=== PATIENT | female | born 2000 | race Hispanic/Latino ===

== ENCOUNTER 2020-07-15 05:30 | Inpatient (IN) | payer MEDICAID, OTHER ==
--- OUTSIDE RECORDS SUMMARY | 2020-07-15 05:32 | XMS REPORT | Continuity of Care Document ---
:2000 Author Organization [facility] t Address [address] [place] [address] Care Team Providers Name Role Phone Boone Claire MD Attending Clinician La Martinez Attending Clinician Boone Claire MD Admitting Clinician Problems This patient has no known problems. Allergies, Adverse Reactions, Alerts This patient has no known allergies or adverse reactions. Medications This patient has no known medications. Procedures This patient has no known procedures. Encounters Start End Encounter Admission Attending Care Care Encounter Source Date/Time Date/Time Type Type Clinicians Facility Department ID 2020-07-13 2020-07-13 [facility] DakotahRONNI [id number] 10:57:00 13:28:00 Encounter Shakeel HENDERSON [id number] ANNEX [id number] 2020-07-02 2020-07-02 Routine IRENA Sanches [id number] 14:34:51 15:21:54 Roshunda R VIDEO RECORDER MECHANIC [id number] Visit REGIONAL [id number] MATERNAL [id number] & CHILD [address] [place] [address] Results This patient has no known results.
--- OUTSIDE RECORDS SUMMARY | 2020-07-15 05:32 | XMS REPORT | Summary of Care ---
:2000 Author Organization [facility] - [facility] Address [address] [place] [address] Care Team Providers Name Role Phone Pcp, Does Not Have A Primary Care Provider Encounter Details Date Type Department Care Team Description 05/10/2020 Orders Only [facility] Doctor Unassigned, No [address] [facility] [place] [address] [address] [place] [address] Allergies No Known Allergiesdocumented as of this encounter (statuses as of 05/10/2020) Medications Medication Sig Dispensed Refills Start Date End Date Status ferrous sulfate 325 mg Take 1 tablet 60 tablet 11 01/24/2019 Active (65 mg iron) by mouth 2 tabletIndications: (two) times Anemia of mother in daily. , antepartum vit Take by mouth. 0 A ctive calc,iron,folic ( VITAMIN ORAL) ferrous sulfate (IRON, Take 1 tablet 60 tablet 11 02/22/2019 Active FERROUS SULFATE,) 325 mg by mouth 2 (65 mg iron) (two) times tabletIndications: daily. Anemia of mother in , antepartum vitamin w/FA Take 1 tablet 100 tablet 3 07/11/2019 Active tabletIndications: by mouth daily. Anemia of mother in , antepartum, Maternal varicella, non-immune, GBS (group B Streptococcus carrier), +RV culture, currently , Chlamydia trachomatis infection of lower genitourinary sites, Encounter for induction of labor, Oligohydramnios in third trimester, single or unspecified fetus, 41 weeks gestation of , Insufficient care in third trimester, Liveborn infant, of vo , born in hospital by vaginal delivery docusate calcium 240 mg Take 1 capsule 30 capsule 1 07/11/2019 Active capsuleIndications: by mouth once Anemia of mother in daily as needed , antepartum, for Maternal varicella, Constipation. non-immune, GBS (group B Streptococcus carrier), +RV culture, currently , Chlamydia trachomatis infection of lower genitourinary sites, Encounter for induction of labor, Oligohydramnios in third trimester, single or unspecified fetus, 41 weeks gestation of , Insufficient care in third trimester, Liveborn infant, of vo , born in hospital by vaginal delivery ferrous sulfate 325 mg Take 1 tablet 60 tablet 2 07/11/2019 Active (65 mg iron) by mouth 2 tabletIndications: (two) times Anemia of mother in daily. , antepartum, Maternal varicella, non-immune, GBS (group B Streptococcus carrier), +RV culture, currently , Chlamydia trachomatis infection of lower genitourinary sites, Encounter for induction of labor, Oligohydramnios in third trimester, single or unspecified fetus, 41 weeks gestation of , Insufficient care in third trimester, Liveborn infant, of vo , born in hospital by vaginal delivery ibuprofen 600 mg Take 1 tablet 30 tablet 1 07/11/2019 Active tabletIndications: by mouth every Anemia of mother in 6 (six) hours , antepartum, as needed for Maternal varicella, Pain (scale non-immune, GBS (group B 1-3) or Pain Streptococcus carrier), (scale 4-6) +RV culture, currently (Pain). Take , Chlamydia with food or trachomatis infection of milk. lower genitourinary sites, Encounter for induction of labor, Oligohydramnios in third trimester, single or unspecified fetus, 41 weeks gestation of , Insufficient care in third trimester, Liveborn infant, of vo , born in hospital by vaginal delivery documented as of this encounter (statuses as of 05/10/2020) Active Problems Problem Noted Date Oligohydramnios in third trimester 07/09/2019 41 weeks gestation of 07/09/2019 Insufficient care in third trimester 07/09/20 19 Liveborn , of vo , [facility] [place] [facility] by vaginal 07/09/2019 delivery Encounter for induction of labor 07/08/2019 Chlamydia trachomatis infection of lower genitourinary sites 01/27/2019 Overview: 5/20/19 - Azithromycin prescribed. GBS (group B Streptococcus carrier), +RV culture, curr ently 01/26/2019 Overview: 01/24/19 - urine culture GBS. S/p Amoxici llin. Will need intrapartum antibiotics. Maternal drug use complicating , antepartum 0 01/25/2019 Overview: 01/24/19 - UDS positive for Marijuana 02/23/19 - UDS negative Maternal varicella, non-immune 01/25/2019 Overview: Patient will need VZV History of pre-eclampsia in prior , currently 01/24/2019 Overview: 01/24/19 - AST 15, creatinine 0.56 Anemia of mother in , antepartum 01/24/2019 Overview: 01/24/19 - Hgb 9.5/hct 30.9 Integra F sta rted. documented as of this encounter (statuses as of 05/10/2020) Resolved Problems Problem Noted Date Resolved Date Acute cystitis during , antepartum 01/26/2019 07/09/2019 Overview: 01/24/19 - urine culture GBS. S/p Amoxici llin. Will need intrapartum antibiotics. HELLP (hemolytic anemia/elev liver enzymes/low platelets in 03/21/2018 01/24/2019 ) Anemia 03/19/2018 01/24/2019 Thrombocytopenia 03/19/2018 01/24/2019 39 weeks gestation of 03/18/2018 01/25/20 Liveborn infant by vaginal delivery 03/18/201801/06 documented as of this encounter (statuses as of 05/10/2020) Social History Tobacco Use Types Packs/Day Years Used Date Never Smoker Smokeless Tobacco: Never Used Alcohol Use Drinks/Week oz/Week Comments No Sex Assigned at Date Recorded Not on file documented as of this encounter Last Filed Vital Signs Not on filedocumented in this encounter Plan of Treatment Date Type Specialty Care Team Description 05/10/2020 Initial Visit [facility] Cierra Hampton, TIME STUDY TECHNOLOGIST [address] [place], [place] [address] [phone] Health Maintenance Due Date Last Done Comments VARICELLA VACCINES (1 of 2 - 2001 2-dose childhood series) MENINGOCOCCAL B VACCINES (1 of 2 - 2010 Risk Bexsero 2-dose series) HPV VACCINES (1 - 2-dose series) 2011 Depression Screening 2012 WELL CARE VISIT: 12-21 YEARS 2012 (yearly) DTaP,Tdap,and Td Vaccines (1 - 2019 Tdap) INFLUENZA VACCINE (#1) 2020 CHLAMYDIA SCREENING 2020 2019 MENINGOCOCCAL VACCINE Aged Out No longer eligible based on patient's age to complete this topic PNEUMOCOCCAL 0-64 YEARS COMBINED Aged Out No longer eligible based on SERIES patient's age to complete this topic documented as of this encounter Procedures Procedure Name Priority Date/Time Associated Diagnosis Comme nts ASSIGNMENT OF BENEFITS Routine 05/10/2020 1:27 PM CDT documented in this encounter Results Not on filedocumented in this encounter Insurance Payer Benefit Plan / Subscriber ID Effective Phone Address T [facility] Group Dates JUAN PABLO ALMEIDA [id number] 2017-Benji GUO Medic [facility] [place] [phone] MANAGED MEDICAID [place], [place]ICA[place] documented as of this encounter
--- OUTSIDE RECORDS SUMMARY | 2020-07-15 05:33 | XMS REPORT | Summary of Care ---
:2000 Author Organization [facility] Address [address] [place] [address] Care Team Providers Name Role Phone Pcp, Does Not Have A Primary Care Provider Reason for Visit Reason Comments Care MF Visit Encounter Details Date Type Department Care Team Description [facility]/18[facility]2020 [facility] MD [address] [facility] [id number] [place] [address] Supervision of high Visit Marble FacultySergio [facility] risk , [address] [place] [address] Allergies No Known Allergiesdocumented as of this encounter (statuses as of 06/18/2020) Medications Medication Sig Dispensed Refills Start Date End Date Status PNV 67-iron ps-folate Take 1 capsule by 30 capsule 11 0 Active no.1-dha (VITAFOL mouth daily. ULTRA) 29 mg iron- 1 mg-200 mg CapIndications: Supervision of high risk , antepartum ferrous sulfate (IRON, Take 1 tablet by 90 tablet 3 06/18/2020 Active FERROUS SULFATE,) 325 mouth 3 (three) mg (65 mg iron) times daily with tabletIndications: meals. Supervision of high risk , antepartum documented as of this encounter (statuses as of 06/18/2020) Active Problems Problem Noted Date Anemia of mother in , antepartum 05/11/2020 Short interval between pregnancies affecting , antepartum 05/11/2020 Supervision of high risk , antepartum 020 Multiparity 05/11/2020 Maternal varicella, non-immune 01/25/2019 Overview: Patient will need VZV History of pre-eclampsia in prior , currently 01/24/2019 Overview: 01/24/19 - AST 15, creatinine 0.56 Estimated Date of Delivery Comments Yes 07/31/2020 Based on last menstr ual period of 10/25/2019 (Within Days) documented as of this encounter (statuses as of 06/18/2020) Resolved Problems Problem Noted Date Resolved Date Oligohydramnios in third trimester 07/09/201905/10 41 weeks gestation of 07/09/2019 05/10/20 20 Insufficient care in third trimester 07/09/2019 05/10/2020 Liveborn infant, of vo , born in hospital by 07/09/2019 05/10/2020 vaginal delivery Encounter for induction of labor 07/08/2019 020 Chlamydia trachomatis infection of lower genitourinary sites 01/27/2019 05/10/2020 Overview: 01/24/19 - Azithromycin prescribed. GBS (group B Streptococcus carrier), +RV culture, currently 01/26/2019 05/10/2020 Overview: 01/24/19 - urine culture GBS. S/p Amoxici llin. Will need intrapartum antibiotics. Acute cystitis during , antepartum 01/26/2019 07/09/2019 Overview: 01/24/19 - urine culture GBS. S/p Amoxici llin. Will need intrapartum antibiotics. Maternal drug use complicating , antepartum 019 05/10/2020 Overview: 01/24/19 - UDS positive for Marijuana 02/23/19 - UDS negative Anemia of mother in , antepartum 01/24/2019 05/10/2020 Overview: 01/24/19 - Hgb 9.5/hct 30.9 Integra F sta rted. HELLP (hemolytic anemia/elev liver enzymes/low platelets in 03/21/2018 01/24/2019 ) Anemia 03/19/2018 01/24/2019 Thrombocytopenia 03/19/2018 01/24/2019 39 weeks gestation of 03/18/2018 01/25/20 19 Liveborn infant by vaginal delivery 03/18/2018 05/ documented as of this encounter (statuses as of 06/18/2020) Immunizations Name Administration Dates Next Due TDAP 05/10/2020 documented as of this encounter Social History Tobacco Use Types Packs/Day Years Used Date Never Smoker Smokeless Tobacco: Never Used Alcohol Use Drinks/Week oz/Week Comments No Estimated Date of Delivery Comments Yes 07/31/2020 Based on last menstr ual period of 10/25/2019 (Within Days) Sex Assigned at Date Recorded Not on file COVID-19 Exposure Response Date Recorded In the last month, have you been in contact with No / Unsure 06/18/2020 3:29 PM CDT someone who was confirmed or suspected to have Coronavirus / COVID-19? documented as of this encounter Last Filed Vital Signs Vital Sign Reading Time Taken Comments Blood Pressure 118/53 06/18/2020 3:29 PM CDT Pulse 96 06/18/2020 3:29 PM CDT Temperature 36.6 C (97.8 F) 06/18/2020 3:29 PM CDT Respiratory Rate 16 06/18/2020 3:29 PM CDT Oxygen Saturation - - Inhaled Oxygen Concentration - - Weight 56.5 kg (124 lb 9 oz) 06/18/2020 3:29 PM CDT Height 157.5 cm (5' 2") 06/18/2020 3:29 PM CDT Body Mass Index 22.78 06/18/2020 3:29 PM CDT documented in this encounter Progress Notes Bronson Sorto MD - 06/18/2020 3:00 PM CDT PRISCILA DE PAZ #: [id number] Date of service: 06/18/2020 16:28 MFM Return Visit CC: Care and MFM Visit HPI: Priscila De Paz is a 19 year old, , /White female. Patient's last menstrual period was 10/25/2019 (within days). She is 33w6d with an intrauterine . Her estimated date of delivery is 07/31/2020, by Last Menstrual Period. Denies bleeding, LOF, contractions. Feeling active movement. Histories: OB History Para Term AB Living 3 2 2 2 SAB TAB Ectopic Multiple Live Births 0 2 # Outcome Date GA Lbr Donald/2nd Weight Sex Delivery Anes PTL Lv 3 Current 2 Term 07/09/19 41w1d 7 lb 3.3 oz (3.27 kg) M NORMAL SPONT EPI N DANITZA 1 Term 03/18/18 39w1d 6 lb 9 oz (2.977 kg) M VAGINAL IV narcotic, EPI DANITZA Past Medical History: Diagnosis Date Maternal drug use complicating , antepartum 01/25/2019 STD (sexually transmitted disease) Family History Problem Relation Age of Onset No Significant Medical Problems Mother No Significant Medical Problems Father Diabetes Maternal Grandfather No past surgical history on file. Social History Socioeconomic History Marital status: Single Spouse name: Not on file Number of children: Not on file Years of education: Not on file Highest education level: Not on file Occupational History Not on file Social Needs Financial resource strain: Not on file Food insecurity Worry: Not on file Inability: Not on file Transportation needs Medical: Not on file Non-medical: Not on file Tobacco Use Smoking status: Never Smoker Smokeless tobacco: Never Used Substance and Sexual Activity Alcohol use: No Drug use: No Sexual activity: Yes Partners: Male Lifestyle Physical activity Days per week: Not on file Minutes per session: Not on file Stress: Not on file Relationships Social connections Talks on phone: Not on file Gets together: Not on file Attends sikhism service: Not on file Active member of club or organization: Not on file Attends meetings of clubs or organizations: Not on file Relationship status: Not on file Intimate partner violence Fear of current or ex partner: Not on file Emotionally abused: Not on file Physically abused: Not on file Forced sexual activity: Not on file Other Topics Concern Not on file Social History Narrative Pt denies physical and sexual abuse. Patient lives with partner and children. Patient has 1 inside dog. Social History Tobacco Use Smoking Status Never Smoker Smokeless Tobacco Never Used Social History Substance and Sexual Activity Sexual Activity Yes Partners: Male Allergies No Known Allergies Medications: Outpatient Medications Marked as Taking for the 06/18/20 encounter (Routine Visit) with Faculty, Sergio Meredith Medication Sig ferrous sulfate (IRON, FERROUS SULFATE,) 325 mg (65 mg iron) tablet Take 1 tablet by mouth 3 (three) times daily with meals. Labs: No new labs Radiology: I have reviewed the patient's Radiology report(s). ROS: Review of Systems Negative ] OBJECTIVE: BP 118/53 (BP Location: Right arm, Patient Position: Sitting, BP CUFF SIZE: Adult Medium) | Pulse 96 | Temp 36.6 C (97.8 F) (Oral) | Resp 16 | Ht 5' 2" (1.575 m) | Wt 124 lb 9 oz (56.5 kg) | LMP 10/25/2019 (Within Days) | BMI 22.78 kg/m 23.04 Physical Exam: Physical Exam Vitals reviewed. Cardiovascular: Regular rate and rhythm. Pulmonary/Chest: Normal inspiratory effort. Abdominal: Abdomen is soft. Neuro/Psychiatric: She has a normal mood and affect. + FHT 140s Assessment and Plan: Priscila De Paz is a 19 year old female at 33w6d with intrauterine Anemia in - Microcytic - + hx in previous pregnancies - never evaluated before - negative FH for thalassemia - will send iron studies and start patient on ferrous sulfate TID - if confirmed iron def will send to L and D for IV iron - if not will do electrophoresis Bronson Sorto MD 06/18/2020 4:31 PM documented in this encounter Plan of Treatment Date Type Specialty Care Team Description 06/20/2020 Junior Programmer Analyst Visit [facility] 06/20/2020 Junior Programmer Analyst Visit Maternal Medicine 06/25/2020 Routine Visit [facility] Stiven Sanches, DRIED YEAST SUPERVISOR [address] [id number] [phone] Name Type Priority Associated Diagnoses Order S chedule IRON LAB Routine Supervision of high risk Exp ected: 06/18/2020, , antepartum s: 06/18/2021 FERRITIN SERUM LAB Routine Supervision of high risk E xpected: 06/18/2020, , antepartum s: 06/18/2021 TOTAL IRON BINDING LAB Routine Supervision of high ri sk Expected: 06/18/2020, CAPACITY , antepartum s: 06/18/2021 Health Maintenance Due Date Last Done Comments INFLUENZA VACCINE (#1) 2020 HPV VACCINES (1 - 2-dose 05/01/2021 Postpon ed from series) 2011 (Preg nant or ) CHLAMYDIA SCREENING 05/10/2021 05/10/2020, 2019 Depression Screening 05/10/2021 05/10/2020 MENINGOCOCCAL B VACCINES (1 05/10/2021 Post poned from of 2 - Risk Bexsero 2-dose 07/07 ( or series) ) VARICELLA VACCINES (1 of 2 - 05/10/2021 Pos tponed from 2-dose childhood series) 001 ( or ) DTaP,Tdap,and Td Vaccines (2 05/10/2030 05/10/2020 - Td) MENINGOCOCCAL VACCINE Aged Out No longer eligible based on patient's age to complete this to pic PNEUMOCOCCAL 0-64 YEARS Aged Out No longe r eligible based COMBINED SERIES on patient's age to complete this to [facility] WELL CARE VISIT: 12-21 YEARS Discontinued (yearly) documented as of this encounter Procedures Procedure Name Priority Date/Time Associated Diagnosis Comme nts POCT URINALYSIS W/O Routine 06/18/2020 3:34 Supervision of [facility] Results for this SPECIFIC GRAVITY PM CDT risk , procedur e are in antepartum the results section. documented in this encounter Results POCT URINALYSIS W/O SPECIFIC GRAVITY (06/18/2020 3:34 PM CDT) Pathologist Sig nature POCT PH U 6 5 - 8 mg/dl POCT U LEUK EST 1+ Negative - Negative POCT U NIT negative Negative - Negative POCT U PROT trace Negative - Negative POCT U GLU negative Negative - Negative POCT U KETONE negative Negative - Negative POCT U BLD negative Negative - Negative Specimen Urine - URINE, CLEAN CATCH documented in this encounter Visit Diagnoses Diagnosis Supervision of high risk , ante - Primary documented in this encounter Insurance Payer Benefit Plan / Subscriber ID Effective Phone Address T ype Group Dates JUAN PABLO ALMEIDA [id number] 2020-Pres [address] Medic aid [facility] - [place] [id number] MANAGED MEDICAID [place], MEDICAID [place] [address] documented as of this encounter
--- OUTSIDE RECORDS SUMMARY | 2020-07-15 05:33 | XMS REPORT | Summary of Care ---
:2000 Author Organization [facility] [email or web address] Address [address] [place] [address] Care Team Providers Name Role Phone Pcp, Does Not Have A Primary Care Provider Reason for Visit Reason Comments New OB Visit Encounter Details Date Type Department Care Team Description 05/10/2020 Initial [facility]- Cierra Hampton pervision of high risk , antepartum (Primary Dx); Visit Su N, RECLAIMER Multiparity; [address] History of pre-eclampsia in prior pregna ncy, currently ; [address] Short interval between pregnancies affec ting , antepartum; [place], [place] Screening for v iral disease [id number] [phone] Allergies No Known Allergiesdocumented as of this encounter (statuses as of 05/10/2020) Medications Medication Sig Dispensed Refills Start Date End Date Status vit Take by 0 Active calc,iron,folic mouth. ( VITAMIN ORAL) ferrous sulfate 325 Take 1 tablet 60 tablet 01/24/201905/10 Discontinued mg (65 mg iron) by mouth 2 0 tabletIndications: (two) times Anemia of mother in daily. , antepartum ferrous sulfate Take 1 tablet 60 tablet 02/22/2019 Discontinued (IRON, FERROUS by mouth 2 0 SULFATE,) 325 mg (65 (two) times mg iron) daily. tabletIndications: Anemia of mother in , antepartum vitamin w/FA Take 1 tablet 100 tablet 3 07/11/2019 Discontinued tabletIndications: by mouth 0 Anemia of mother in daily. , antepartum, Maternal varicella, non-immune, GBS (group B Streptococcus carrier), +RV culture, currently , Chlamydia trachomatis infection of lower genitourinary sites, Encounter for induction of labor, Oligohydramnios in third trimester, single or unspecified fetus, 41 weeks gestation of , Insufficient care in third trimester, Liveborn , of vo , born in hospital by vaginal delivery docusate calcium 240 Take 1 30 capsule 1 07/11/2019 02 Discontinued mg capsule by 0 capsuleIndications: mouth once Anemia of mother in daily as , needed for antepartum, Maternal Constipation. varicella, non-immune, GBS (group B Streptococcus carrier), +RV culture, currently , Chlamydia trachomatis infection of lower genitourinary sites, Encounter for induction of labor, Oligohydramnios in third trimester, single or unspecified fetus, 41 weeks gestation of , Insufficient care in third trimester, Liveborn infant, of vo , born in hospital by vaginal delivery ferrous sulfate 325 Take 1 tablet 60 tablet 2 07/11/201905/10 Discontinued mg (65 mg iron) by mouth 2 0 tabletIndications: (two) times Anemia of mother in daily. , antepartum, Maternal varicella, non-immune, GBS (group B Streptococcus carrier), +RV culture, currently , Chlamydia trachomatis infection of lower genitourinary sites, Encounter for induction of labor, Oligohydramnios in third trimester, single or unspecified fetus, 41 weeks gestation of , Insufficient care in third trimester, Liveborn , of vo , born in hospital by vaginal delivery ibuprofen 600 mg Take 1 tablet 30 tablet 1 07/11/2019 05/10/20 2 Discontinued tabletIndications: by mouth 0 Anemia of mother in every 6 (six) , hours as antepartum, Maternal needed for varicella, Pain (scale non-immune, GBS 1-3) or Pain (group B (scale 4-6) Streptococcus (Pain). Take carrier), +RV with food or culture, currently milk. , Chlamydia trachomatis infection of lower genitourinary sites, Encounter for induction of labor, Oligohydramnios in third trimester, single or unspecified fetus, 41 weeks gestation of , Insufficient care in third trimester, Liveborn infant, of ov , born in hospital by vaginal delivery documented as of this encounter (statuses as of 05/10/2020) Active Problems Problem Noted Date Maternal varicella, non-immune 01/25/2019 Overview: Patient will [...] care in third trimester 07/09/2019 05/10/2020 Liveborn , of vo , born in hospital by [...] weeks gestation of 03/18/2018 01/25/20 19 Liveborn by vaginal delivery 03/18/2018 05/ documented as of this encounter (statuses as of 05/10/2020) Immunizations Name Administration Dates Next Due TDAP [...] been in contact with No / Unsure 05/10/2020 2:12 PM CDT someone who was confirmed or suspected to have Coronavirus / COVID-19? documented as of this encounter Last Filed Vital Signs Vital Sign Reading Time Taken Comments Blood Pressure 113/73 05/10/2020 2:12 PM CDT Pulse 88 05/10/2020 2:12 PM CDT Temperature 36.3 C (97.3 F) 05/10/2020 2:12 PM CDT Respiratory Rate 16 05/10/2020 2:12 PM CDT Oxygen Saturation - - Inhaled Oxygen Concentration - - Weight 57.2 kg (126 lb) 05/10/2020 2:12 PM CDT Height 157.5 cm (5' 2") 05/10/2020 2:12 PM CDT Body Mass Index 23.05 05/10/2020 2:12 PM CDT documented in this encounter Progress Notes Cierra Hampton, RECLAIMER - 05/10/2020 1:45 PM CDT Chief complaint: Chief Complaint Patient presents with New OB Visit CC: Initial Visit Gabriela De Paz is a 19 year old, , /White female. Patient's last menstrual period was 10/25/2019 (within days). She is 28w2d with an intrauterine . Her Estimated Date of Delivery: 07/31/20. She is being seen today for her first obstetrical visit. She has no complaints today. Patient denies recent foreign travel. Denies current physical, emotional or sexual abuse. She is taking PNV. She denies any ctx/cramping, VB, LOF, CALDWELL, visual disturbance, vaginal discharge or dysuria. She denies any foreign travel. She also denies any physical, sexual or emotional abuse. OB History T2 L2 SAB0 TAB0 Ectopic0 Multiple0 Live Births2 Name of Baby 1: OSMEL DE PAZ BOY Date: 03/18/18 GA: 39w1d Delivery: Vaginal Apgar1: 8 Apgar5: 9 Living: Living Name of Baby 2: ABEL DE PAZ GABRIELA Date: 07/09/19 GA: 41w1d Delivery: Normal Spontaneous Vaginal Apgar1: 8 Apgar5: 9 Living: Living Name of Baby 3: Not recorded Date: Not recorded GA: Not recorded Delivery: Not recorded Apgar1: Not recorded Apgar5: Not recorded Living: Not recorded Histories OB History Para Term AB Living 3 [...] Significant Medical Problems Father Diabetes Maternal Grandfather Family Status Relation Name Status Mo Alive Fa Alive MGFa Alive History reviewed. No pertinent surgical history. Social History Socioeconomic History Marital status: Single [...] file Gets together: Not on file Attends congregation service: Not on file Active member of [...] Patient has 1 inside dog. Social History Substance and Sexual Activity Sexual Activity Yes Partners: Male Genetic Screen Autism / Mental Retardation: No Franchesca Disease: No Congenital Heart Defect: No Cystic Fibrosis: No Down Syndrome: No Familial Dysautonomia: No Hemophilia or other Blood Disorders: No Ledy Chorea: No Maternal Metabolic Disorder--specify (eg. Type 1 Diabetes, PKU): No Muscular Dystrophy: No Neural Tube Defect: No Recurrent Loss or a Stillbirth: No Sickle Cell Disease or Trait: No Chacho Sachs: No Teratological Substances (specify type & strength/dose) since LMP: No Thalassemia: No Other Inherited Genetic or Chromosomal Disorder (specify): No No Significant History of Genetic Disorders: No Significant History of Genetic Disorders Labs Labs are pending. Radiology Radiology pending. Allergies Gabriela has No Known Allergies. Medications Gabriela has a current medication list which includes the following prescription(s): vit calc,iron,folic. Review of Systems Constitutional: Negative. Negative for appetite change, fatigue and fever. HENT: Negative. Eyes: Negative. Negative for visual disturbance. Respiratory: Negative. Breasts: Negative. Cardiovascular: Negative. Negative for palpitations and leg swelling. Gastrointestinal: Negative. Negative for abdominal pain, constipation, diarrhea, nausea and vomiting. Genitourinary: Negative. Negative for dysuria, vaginal bleeding, vaginal discharge and pelvic pain. Musculoskeletal: Negative. Skin: Negative. Negative for rash. Neurological: Negative. Negative for dizziness, light-headedness and headaches. Psychiatric/Behavioral: Negative. Endocrine: Endocrine negative BP 113/73 (BP Location: Right arm, Patient Position: Sitting, BP CUFF SIZE: Adult Medium) | Pulse 88 | Temp 36.3 C (97.3 F) (Oral) | Resp 16 | Ht 5' 2" (1.575 m) | Wt 126 lb (57.2 kg) | LMP 10/25/2019 (Within Days) | No | BMI 23.05 kg/m Pregravid BMI: 23.04 Physical Exam Vitals reviewed. Constitutional: She is oriented to person, place, and time. She appears well- developed and well-nourished. Her body habitus is normal. See flowsheet Neck: No thyroid nodules and no thyromegaly palpated. Cardiovascular: Regular rate and rhythm. No murmur auscultated. No peripheral edema present. Pulmonary/Chest: Breath sounds clear to auscultation. Normal inspiratory effort. Abdominal: Abdomen is soft. No mass palpated. No tenderness present. There is no hepatosplenomegaly. Neuro/Psychiatric: She has a normal mood and affect. She is oriented to person, place, and time. Skin: Skin normal. No lesion and no rash present. Genitourinary Comments: Chaperoned by: Aleksandra Emanuel MA Breast: Right breast exhibits no mass, no nipple discharge and no tenderness. Left breast exhibits no mass, no nipple discharge and no tenderness. Normal left breast and normal right breast External genitalia: Normal external genitalia appropriate for age. No labial lesion. Bladder: No tenderness. Normal bladder Vagina:Normal vagina. No lesion inspected. No abnormal vaginal discharge found. No lesions in thevagina. Cervix: Normal cervix. No lesion. No tenderness and no discharge present. Uterus: Uterus is enlarged. Uterus is normal position and non-tender. gravidNormal uterus Adnexa: Right adnexa without tenderness. Left adnexa without tenderness. Normal left adnexa and normal right adnexa PHYSICAL: General Exam: HEENT: Normal Thyroid: Normal Lymph Node: Normal Neurological: Normal Heart: Normal Lungs: Normal Breasts: Normal Abdomen: Normal Skin: Normal Extremities: Normal Pelvic Exam: Vulva: Normal Vagina: Normal Cervix: Normal SVE closed/thick/high Membrane status: Intact Uterus: 26 Weeks Adnexa: Normal Rectum: Normal Spines: Average Subpubic Arch: Normal Assessment/Plan 1. Supervision of high risk , antepartum 28w2d New OB packet reviewed TWG discussed Discussed recommendation for social distancing and PPE use Initiate Vitamins Increase Fluid Intake. Minimum of 8 water bottles daily. Plan anatomy scan with insurance coverage 28 week teaching and tdap today - POCT TEST - POCT URINALYSIS W/O SPECIFIC GRAVITY - CBC WITH DIFF - GC & CHLAMYDIA AMPLIFIED ASSAY - HEPATITIS B SURFACE ANTIGEN - HIV 1/2 AG-AB WITH REFLEX - WORKUP, BLOOD BANK - RUBELLA SCREEN (BIA) IGG - GALV ONLY - SYPHILIS IGG/IGM - URINE CULTURE - VZV ANTIBODY SCREEN - TDAP VACCINE, >10 YRS, IM - POCT URINALYSIS W/O SPECIFIC GRAVITY; Standing - GLUCOSE 1 HOUR POST PRANDIAL 2. Multiparity 3. History of pre-eclampsia in prior , currently Case reviewed with Herman TAN, not a candidate for daily LDA due to advanced gestation - COMP. METABOLIC PANEL (25565) - CREATININE U 24 HR; Future - PROTEIN QUANT U/24H; Future 4. Short interval between pregnancies affecting , antepartum 5. Screening for viral disease - SARS-COV-2 IGG Return to clinic in 2 weeks. Discussed treatment options. Reviewed patient instructions and provided printed copy. at 28w2d This visit did not involve counseling and coordination that comprised more than 50% of the visit time. Shahana webster LVN - 05/10/2020 1:45 PM CDTPatient is 19 year old female here for current . Patient is . 1) Previous delivery methods vaginal 2) Patient is not experiencing cramping 3) Patient is not experiencing bleeding. 4) LMP 10/25/2019 5) Last Pap was:n/a Results:n/a 6) Have you had a flu vaccine this season?no 7) PPD candidate? no 8) Patient complains none 9) Patient denies history of physical, emotional, or sexual abuse. Patient states she currently feels safe at home. NOB packet given and reviewed with patient. documented in this encounter Plan of Treatment Date Type Specialty Care Team Description 05/24/2020 Routine Visit OB Satellites Cierra Hampton FNP [address] [place], [place] [address] [phone] Name Type Priority Associated Diagnoses Date/Ti me GLUCOSE 1 HOUR POST LAB Routine Supervision of high coyle isk 05/10/2020 3:21 PM CDT PRANDIAL , antepartum Name Type Priority Associated Diagnoses Order S chedule CBC WITH DIFF LAB Routine Supervision of high risk Or dered: 05/10/2020 , antepartum GC & CHLAMYDIA LAB Routine Supervision of high risk O rdered: 05/10/2020 AMPLIFIED ASSAY , antepartum HEPATITIS B SURFACE LAB Routine Supervision of high r isk Ordered: 05/10/2020 ANTIGEN , antepartum HIV 1/2 AG-AB WITH LAB Routine Supervision of high ri sk Ordered: 05/10/2020 REFLEX , antepartum WORKUP, BLOOD LAB Routine Supervision of hig h risk Ordered: 05/10/2020 BANK , antepartum RUBELLA SCREEN (BIA) LAB Routine Supervision of hig h risk Ordered: 05/10/2020 IGG , antepartum GALV ONLY - SYPHILIS LAB Routine Supervision of high risk Ordered: 05/10/2020 IGG/IGM , antepartum URINE CULTURE LAB Routine Supervision of high risk Or dered: 05/10/2020 , antepartum VZV ANTIBODY SCREEN LAB Routine Supervision of high r isk Ordered: 05/10/2020 , antepartum SARS-COV-2 IGG LAB Routine Screening for viral Ordere d: 05/10/2020 disease POCT URINALYSIS W/O LAB Routine Supervision of high r isk 20 Occurrences starting SPECIFIC GRAVITY , antepartum until 05/10/2021 COMP. METABOLIC PANEL LAB Routine History of pre-ecla mpsia Ordered: 05/10/2020 (02670) in prior , currently CREATININE U 24 HR LAB Routine History of pre-eclamps ia Expected: 05/10/2020, in prior , Expires: 05/10/2021 currently PROTEIN QUANT U/24H LAB Routine History of pre-eclamp luzmaria Expected: 05/10/2020, in prior , Expires: 05/10/2021 currently Health Maintenance Due Date Last Done Comments INFLUENZA VACCINE (#1) 2020 Postponed from 05/08/2020 (Vaccine not judy ilable) CHLAMYDIA SCREENING 2020 2019 HPV VACCINES (1 - 2-dose series) 05/01/2021 Postponed from 2011 ( or Karina astfeeding) Depression Screening 05/10/2021 05/10/2020 MENINGOCOCCAL B VACCINES (1 of 2 05/10/2021 Postponed from 2010 - Risk Bexsero 2-dose series) (P regnant or ) VARICELLA VACCINES (1 of 2 - 05/10/2021 Pos tponed from 2001 2-dose childhood series) (Pregna nt or ) DTaP,Tdap,and Td Vaccines (2 - 05/10/2030 05/10/2020 Td) MENINGOCOCCAL VACCINE Aged Out No longer eligible based on patient's age to complete this topic PNEUMOCOCCAL 0-64 YEARS COMBINED Aged Out No longer eligible based on SERIES patient's age to complete this topic WELL CARE VISIT: 12-21 YEARS Discontinued (yearly) documented as of this encounter Procedures Procedure Name Priority Date/Time Associated Diagnosis Comme nts TDAP VACCINE, >11 Routine 05/10/2020 2:47 Supervision of high YRS, IM PM CDT risk , antepartum POCT URINALYSIS W/O Routine 05/10/2020 2:11 Supervision of hi gh Results for this SPECIFIC GRAVITY PM CDT risk , procedur e are in antepartum the results section. POCT TEST Routine 05/10/2020 2:11 Supervision of hi gh Results for this PM CDT risk , procedure ar e in antepartum the results section. documented in this encounter Results POCT URINALYSIS W/O SPECIFIC GRAVITY (05/10/2020 2:11 PM CDT) Pathologist Sig nature POCT PH U 6 5 - 8 mg/dl POCT U LEUK EST trace Negative - Negative POCT U NIT neg Negative - Negative POCT U PROT trace Negative - Negative POCT U GLU neg Negative - Negative POCT U KETONE neg Negative - Negative POCT U BLD neg Negative - Negative Specimen Urine - URINE, CLEAN CATCH POCT TEST (05/10/2020 2:11 PM CDT) Pathologist Sig nature POCT PREG Positive On board controls acceptable Yes with C Line POCT PREG LOT # POCT PREG TEST DATE Specimen Urine - URINE, CLEAN CATCH documented in this encounter Visit Diagnoses Diagnosis Supervision of high risk , ante - Primary Multiparity History of pre-eclampsia in prior pregna ncy, currently with other poor obstetric hist ory Short interval between pregnancies affec ting , antepartum Screening for viral disease Special screening examination for unspec ified viral disease documented in this encounter Insurance Payer Benefit Plan / Subscriber ID Effective Phone Address T ype Group Dates MEDICAID MEDICAID PENDING 2020-[address] Pending PENDING PENDING nt [place] [id number] documented as of this encounter
--- OUTSIDE RECORDS SUMMARY | 2020-07-15 05:33 | XMS REPORT | Summary of Care ---
:2000 Author Organization [facility] Address [address] [place] [address] Care Team Providers Name Role Phone Pcp, Does Not Have A Primary Care Provider Reason for Referral (Routine) Status Reason Specialty Diagnoses / Referred By Referred To Procedures Contact Contact New Request Maternal Diagnoses Supervision of high risk , antepartum Cierra Hampton Medicine Procedures CONSULT MATERNAL MEDICINE ULTRASOUND [facility] [address] [place] [address] Reason for Visit Reason Comments Orders referral for [place] Encounter Details Date Type Department Care Team Description [facility] [address] [facility] [place] [phone] Allergies No Known Allergiesdocumented as of this encounter (statuses as of 05/21/2020) Medications Medication Sig Dispensed Refills Start Date End Date Status PNV 67-iron Take 1 capsule 30 capsule 11 05/21/2020 A ctive ps-folate no.1-dha by mouth (VITAFOL ULTRA) 29 daily. mg iron- 1 mg-200 mg CapIndications: Supervision of high risk , antepartum vit Take by 0 05/21/2020 Discon tinued calc,iron,folic mouth. ( VITAMIN ORAL) documented as of this encounter (statuses as of 05/21/2020) Active Problems Problem Noted Date Anemia of mother in , antepartum 05/11/2020 Short interval between pregnancies affecting , antepartum 05/11/2020 High-risk in second trimester 05/11/2020 Multiparity 05/11/2020 Maternal varicella, non-immune 01/25/2019 Overview: Patient will need VZV History of pre-eclampsia in prior , currently 01/24/2019 Overview: 01/24/19 - AST 15, creatinine 0.56 Estimated Date of Delivery Comments Yes 07/31/2020 Based on last menstr ual period of 10/25/2019 (Within Days) documented as of this encounter (statuses as of 05/21/2020) Resolved Problems Problem Noted Date Resolved Date [...] 01/25/20 19 Liveborn infant by vaginal delivery 03/18/201801/06 documented as of this encounter (statuses as of 05/21/2020) Immunizations Name Administration Dates Next Due TDAP [...] Signs Not on filedocumented in this encounter Miscellaneous Notes Addendum Note - Cierra Hampton FNP - 05/21/2020 4:55 PM CDT Addended by: CIERRA KAY on: 05/21/2020 04:55 PM Modules accepted: Orders Telephone Encounter - Herminia Rodriguez - 05/21/2020 1:37 PM CDTDeskayy De Paz is a 19 year old female Patient states Medicaid is active, requesting referral for an Ultrasound documented in this encounter Plan of Treatment Date Type Specialty Care Team Description 05/24/2020 Routine Visit OB Satellites Cierra Hampton FNP [address] [place], [place] [address] [phone] Health Maintenance Due Date Last Done Comments INFLUENZA VACCINE (#1) 2020 Postponed from 05/08/2020 (Vacc ine not available) HPV VACCINES (1 - 2-dose 05/01/2021 Postpon [...] patient's age to complete this to pic WELL CARE VISIT: 12-21 YEARS Discontinued (yearly) documented as of this encounter Results Not on filedocumented in this encounter Visit Diagnoses Diagnosis Supervision of high risk , ante - Primary documented in this encounter Insurance Payer Benefit Plan / Subscriber ID Effective Dates Phone Addre ss Type Group [employer] MEDICAID OF [id number] 2020-Present [phone] Medicaid [place] [id number] [place] [phone] documented as of this encounter
--- OUTSIDE RECORDS SUMMARY | 2020-07-15 05:33 | XMS REPORT | Summary of Care ---
:2000 Author Organization [facility] Address [address] [place] [id number] Care Team Providers Name Role Phone Pcp, Does Not Have A Primary Care Provider Reason for Referral (Routine) Status Reason Specialty Diagnoses / Referred By Referred To Procedures Contact Contact New Request Maternal Diagnoses Anemia of mother in , antepartum Stiven Sanches Medicine Procedures CONSULT/REFERRAL MATERNAL MEDICINE FACULTY/FELLOW Preferred location: [facility] Ped[facility] [address] [place] [address] Reason for Visit Reason Comments ROUTINE VISIT Encounter Details Date Type Department Care Team Description 06/11/2020 Routine [facility] RMP- Stiven Sanches upervision of high risk , antepartum (Primary Dx); Visit VEE Pederson Short interval between pregnancies affec ting , antepartum; [address] [facility] [address] History o f pre-eclampsia in prior , currently ; [facility] Multiparity; [place], [place] Anemia of mothe r in , antepartum [id number] Allergies No Known Allergiesdocumented as of this encounter (statuses as of 06/11/2020) Medications Medication Sig Dispensed Refills Start Date End Date Status PNV 67-iron ps-folate Take 1 capsule by 30 capsule 11 0 Active no.1-dha (VITAFOL mouth daily. ULTRA) 29 mg iron- 1 mg-200 mg CapIndications: Supervision of high risk , antepartum documented as of this encounter (statuses as of 06/11/2020) Active Problems Problem Noted Date Anemia of [...] as of this encounter (statuses as of 06/11/2020) Resolved Problems Problem Noted Date Resolved Date [...] 19 Liveborn infant by vaginal delivery 03/18/2018 05 documented as of this encounter (statuses as of 06/11/2020) Immunizations Name Administration Dates Next Due TDAP [...] been in contact with No / Unsure 06/11/2020 2:39 PM CDT someone who was confirmed or suspected to have Coronavirus / COVID-19? documented as of this encounter Last Filed Vital Signs Vital Sign Reading Time Taken Comments Blood Pressure 124/51 06/11/2020 2:40 PM CDT Pulse 90 06/11/2020 2:40 PM CDT Temperature 37.1 C (98.7 F) 06/11/2020 2:40 PM CDT Respiratory Rate 16 06/11/2020 2:40 PM CDT Oxygen Saturation - - Inhaled Oxygen Concentration - - Weight 57.4 kg (126 lb 9.6 oz) 06/11/2020 2:40 PM CDT Height 157.5 cm (5' 2") 06/11/2020 2:40 PM CDT Body Mass Index 23.16 06/11/2020 2:40 PM CDT documented in this encounter Progress Notes Stiven Sanches, VEE - 06/11/2020 2:30 PM CDT Chief complaint: Chief Complaint Patient presents with ROUTINE VISIT HPI CC: Follow Up Visit Priscila De Paz is a 19 year old, , /White female. Patient's last menstrual period was 10/25/2019 (within days). She is 32w6d with an intrauterine . Her estimated date of delivery is 07/31/2020, by Last Menstrual Period. She has no complaints today. She reports +FM and denies contractions, LOF and bleeding today. Patient denies current or past physical, sexual or emotional abuse. Histories OB History Para Term AB Living [...] Status Mo Alive Fa Alive MGFa Alive No past surgical history on file. Social [...] file Gets together: Not on file Attends mormonism service: Not on file Active member of [...] Sexual Activity Sexual Activity Yes Partners: Male Labs Labs are pending. Radiology No new radiology. Allergies Priscila has No Known Allergies. Medications Priscila has a current medication list which includes the following prescription(s): vitafol ultra. Review of Systems Eyes: Negative for visual disturbance. Cardiovascular: Negative for leg swelling. Gastrointestinal: Negative for abdominal pain, nausea and vomiting. Genitourinary: Negative for vaginal bleeding, vaginal discharge and pelvic pain. Neurological: Negative for headaches. BP 124/51 (BP Location: Right arm, Patient Position: Sitting, BP CUFF SIZE: Adult Small) | Pulse 90 | Temp 37.1 C (98.7 F) (Oral) | Resp 16 | Ht 5' 2" (1.575 m) | Wt 126 lb 9.6 oz (57.4 kg) |LMP 10/25/2019 (Within Days) | BMI 23.16 kg/m Pregravid BMI: 23.04 Physical Exam PHYSICAL: General Exam: Neurological: Normal Abdomen: Normal Extremities: Normal Pelvic Exam: Uterus: 31cm Weeks Assessment/Plan Supervision of high risk , antepartum (primary encounter diagnosis) Short interval between pregnancies affecting , antepartum History of pre-eclampsia in prior , currently Multiparity Comment:ROutine Visit Plan: POCT URINALYSIS W/O SPECIFIC GRAVITY, HIV 1/2 AG-AB WITH REFLEX, GALV ONLY - SYPHILIS IGG/IGM, GALV ONLY - SYPHILIS IGG/IGM Denies zika virus risk, signs and symptoms such as fever,rash,joint pain, conjunctivitis (red eyes), muscle pain, headaches; outside [place] travel to areas affected by zika, and FOB exposure to zika.Educated on use of mosquito repellent. Covid x12 screening done, screening results are negative. Anemia of mother in , antepartum Comment: HGB 7.7 Plan: CONSULT/REFERRAL MATERNAL MEDICINE FACULTY/FELLOW Preferred location: [place] Return to clinic in 1 weeks with MFM. Discussed treatment options. Medications as ordered. Reviewed patient instructions and provided printed copy. This visit did not involve counseling and coordination that comprised more than 50% of the visit time. VEE Irizarry 06/11/2020 3:25 PM documented in this encounter Plan of Treatment Date Type Specialty Care Team Description 06/18/2020 Routine Visit OB Satellites Stiven Sanches DAIRY EQUIPMENT REPAIRER [address] [place], [place] [address] [phone] 06/20/2020 Efficiency Analyst Visit Maternal Medicine 06/25/2020 Routine Visit OB [facility] Charan Sanchesalondra Tovar, DAIRY EQUIPMENT REPAIRER [address] [place], [place] [address] [phone] Name Type Priority Associated Diagnoses Date/Ti me HIV 1/2 AG-AB WITH LAB Routine Supervision of high ri sk 06/11/2020 3:14 PM CDT REFLEX , antepartum GALV ONLY - SYPHILIS LAB Routine Supervision of high risk 06/11/2020 3:14 PM CDT IGG/IGM , antepartum Name Type Priority Associated Diagnoses Order S chedule GALV ONLY - SYPHILIS LAB Routine Supervision of high risk Expected: 06/11/2020, IGG/IGM , antepartum s: 06/11/2021 Health Maintenance Due Date Last Done Comments [...] on patient's age to complete this to [facility] PNEUMOCOCCAL 0-64 YEARS Aged Out No longe r eligible based COMBINED SERIES on patient's age to complete this to [facility] WELL CARE VISIT: 12-21 YEARS Discontinued (yearly) documented as of this encounter Procedures Procedure Name Priority Date/Time Associated Diagnosis Comme nts POCT URINALYSIS W/O Routine 06/11/2020 Supervision of high R esults for this SPECIFIC GRAVITY risk , procedur e are in the antepartum results section . documented in this encounter Results POCT URINALYSIS W/O SPECIFIC GRAVITY (06/11/2020) Pathologist Sig nature POCT PH U . 5 - 8 mg/dl POCT U LEUK EST . Negative - Negative POCT U NIT . Negative - Negative POCT U PROT trace Negative - Negative POCT U GLU neg Negative - Negative POCT U KETONE . Negative - Negative POCT U BLD . Negative - Negative Specimen Urine - URINE, CLEAN CATCH documented in this encounter Visit Diagnoses Diagnosis Supervision of high risk , ante - Primary Short interval between pregnancies affec ting , antepartum History of pre-eclampsia in prior pregna ncy, currently with other poor obstetric hist ory Multiparity Anemia of mother in , antepartu m Anemia, antepartum documented in this encounter Insurance Payer Benefit Plan / Subscriber ID Effective Phone Address T [facility] Group Dates JUAN PABLO ALMEIDA [id number] 2020-Pres [address] Medic aid HEALTHCARE [place] [id number] MANAGED MEDICAID [place], MEDICAID [place] [address] 1 documented as of this encounter
--- OUTSIDE RECORDS SUMMARY | 2020-07-15 05:33 | XMS REPORT | Summary of Care ---
:2000 Author Organization [facility] Address [address] [place] [address] Care Team Providers Name Role Phone Pcp, Does Not Have A Primary Care Provider Encounter Details Date Type Department Care Team Description 05/15/2020 Abstract [facility] RMCHP- A Cierra Rose, RESEARCH AND DEVELOPMENT TESTER 110[address] [facility] [address] [place] [address]55 [facility] [phone] [place], [place] [address] [phone] Allergies No Known Allergiesdocumented as of this encounter (statuses as of 05/15/2020) Medications Medication Sig Dispensed Refills Start Date End Date Status vit Take by mouth. 0 A ctive calc,iron,folic ( VITAMIN ORAL) documented as of this encounter (statuses as of 05/15/2020) Active Problems Problem Noted Date Anemia of [...] as of this encounter (statuses as of 05/15/2020) Resolved Problems Problem Noted Date Resolved Date [...] 03/18/2018 01/25/20 19 Liveborn by vaginal delivery 03/18/201801/06 documented as of this encounter (statuses as of 05/15/2020) Immunizations Name Administration Dates Next Due TDAP [...] Description 05/24/2020 Routine Visit OB Satellites Cierra Hampton, RESEARCH AND DEVELOPMENT TESTER [address] [place], [place] [address] [phone] Health Maintenance Due Date Last Done Comments [...] on patient's age to complete this to [facility] WELL CARE VISIT: 12-21 YEARS Discontinued (yearly) documented as of this encounter Results Not on filedocumented in this encounter Insurance Payer Benefit Plan / Subscriber ID Effective Phone Address T ype Group Dates MEDICAID MEDICAID PENDING 2020-[address] Pending [place] [address] documented as of this encounter
--- OUTSIDE RECORDS SUMMARY | 2020-07-15 05:33 | XMS REPORT | Summary of Care ---
:2000 Author Organization [facility] Address [address] [place] [address] Care Team Providers Name Role Phone Pcp, Does Not Have A Primary Care Provider Reason for Visit Reason Comments Lab Results Encounter Details Date Type Department Care Team Description 05/11/2020 Telephone [facility] RMCHP- A Cierra Rose, DINING CAR STEWARD Lab Results [address] [place] [address] 955 [facility] A [phone] [place], [place] [address] [phone] Allergies No Known Allergiesdocumented as of this encounter (statuses as of 05/11/2020) Medications Medication Sig Dispensed Refills Start Date End Date Status vit Take by mouth. 0 A ctive calc,iron,folic ( VITAMIN ORAL) documented as of this encounter (statuses as of 05/11/2020) Active Problems Problem Noted Date Anemia of [...] as of this encounter (statuses as of 05/11/2020) Resolved Problems Problem Noted Date Resolved Date [...] as of this encounter (statuses as of 05/11/2020) Immunizations Name Administration Dates Next Due TDAP [...] on filedocumented in this encounter Miscellaneous Notes Telephone Encounter - Shahana Cruz LVN - 05/11/2020 2:03 PM CDTDestinxander De Paz is a 19 year old female Patient informed of results and new orders. Patient stated she will call once she is active for medicaid. Stressed the importance of starting iron supplement, verbalized understanding. elephone Encounter - Cierra Hampton FNP - 05/11/2020 12:11 PM CDTPt is severely anemic and needs to start iron daily in addition to vitamin. Will send a prescription to her pharmacy once medicaid is active, but in the mean time she needs to get over the counter ferrous sulfate 325mg twice daily and a vitamin. Take a different time of day than pren atal vitamin and take with vitamin c supplement or a glass of orange juice. It is very important that she adhere to this regimen, if her blood counts do not improve with oral supplementation, she may have to receive IV iron infusions. documented in this encounter Plan of Treatment Date Type Specialty Care Team Description 05/24/2020 Routine Visit OB Satellites Cierra Hampton FNP [address] [place], [place] [address] [phone] Health Maintenance Due Date Last Done Comments [...] filedocumented in this encounter Visit Diagnoses Diagnosis Anemia of mother in , antepartu m - Primary Anemia, antepartum documented in this encounter Insurance Payer Benefit Plan / Subscriber ID Effective Phone Address T ype Group Dates MEDICAID MEDICAID PENDING 2020-[address] [place] [address] documented as of this encounter
--- OUTSIDE RECORDS SUMMARY | 2020-07-15 05:33 | XMS REPORT | Summary of Care ---
:2000 Author Organization [facility] Address [address] [place] [address] Care Team Providers Name Role Phone Pcp, Does Not Have A Primary Care Provider Reason for Visit Reason Comments LAB WORK Encounter Details Date Type Department Care Team Description 06/20/2020 Stiff Straw Hat Washer Visit [facility]- Jignesh Sanches, DIESEL ENGINE ENGINEER [address] [place] [address] Supervision of [facility], [facility] risk , [address] [facility] [place] [address] Allergies No Known Allergiesdocumented as of this encounter (statuses as of 06/20/2020) Medications Medication Sig Dispensed Refills Start Date [...] as of this encounter (statuses as of 06/20/2020) Active Problems Problem Noted Date Anemia of [...] as of this encounter (statuses as of 06/20/2020) Resolved Problems Problem Noted Date Resolved Date [...] as of this encounter (statuses as of 06/20/2020) Immunizations Name Administration Dates Next Due TDAP [...] been in contact with No / Unsure 06/20/2020 1:50 PM CDT someone who was confirmed or suspected to have Coronavirus / COVID-19? documented as of this encounter Last Filed Vital Signs Not on filedocumented in this encounter Plan of Treatment Date Type Specialty Care Team Description 06/20/2020 Stiff Straw Hat Washer Visit Maternal Stiven Sanches, [facility] DIESEL ENGINE ENGINEER [address] [place] [address] [phone] 06/25/2020 Routine Visit OB Satellites Stiven Sanches, DIESEL ENGINE ENGINEER [address] [place], [place] [address] [phone] Name Type Priority Associated Diagnoses Date/Ti me FERRITIN SERUM LAB Routine Supervision of high risk 1 1:49 PM CDT , antepartum TOTAL IRON BINDING LAB Routine Supervision of high ri 06/20/2020 1:49 PM CDT CAPACITY , antepartum Health Maintenance Due Date Last Done Comments [...] on patient's age to complete this to [facility] PNEUMOCOCCAL 0-64 YEARS Aged Out No longe r eligible based COMBINED SERIES on patient's age to complete this to [facility] WELL CARE VISIT: 12-21 YEARS Discontinued (yearly) documented as of this encounter Results Not on filedocumented in this encounter Visit Diagnoses Diagnosis Supervision of high risk , ante documented in this encounter Insurance Payer Benefit Plan / Subscriber ID Effective Phone Address T ype Group Dates JUAN PABLO ALMEIDA [id number] 2020-Pres [address] Medic aid HE[place]CARE [place] [id number] MANAGED MEDICAID [place], [place] [address] 1 documented as of this encounter
--- OUTSIDE RECORDS SUMMARY | 2020-07-15 05:34 | XMS REPORT | Summary of Care ---
:2000 Author Organization [facility] Address [address] [place] [address] Care Team Providers Name Role Phone Pcp, Does Not Have A Primary Care Provider Reason for Visit Reason Comments ROUTINE VISIT Encounter Details Date Type Department Care Team Description 07/02/2020 Routine [facility] RMCHP- Stiven Sanches upervision of high risk , antepartum (Primary Dx); Visit Mercer R, MEDICAL COLLECTOR Short interval between pregnancies affec ting , antepartum; [address] [place] [address] History o f pre-eclampsia in prior , currently ; [address] [place] Multiparity; [place], [place] Anemia of mothe r in , antepartum; [phone] IUGR (intrauterine growth restriction) a ffecting care of mother, third trimester, fetus 7 [phone] Allergies No Known Allergiesdocumented as of this encounter (statuses as of 07/03/2020) Medications Medication Sig Dispensed Refills Start Date [...] as of this encounter (statuses as of 07/03/2020) Active Problems Problem Noted Date IUGR (intrauterine growth restriction) affecting care of mother, third 06/20/2020 trimester, fetus 1 Overview: NST x2wkly and dopplers wkly Anemia of mother in , antepartum 05/11/2020 [...] as of this encounter (statuses as of 07/03/2020) Resolved Problems Problem Noted Date Resolved Date [...] as of this encounter (statuses as of 07/03/2020) Immunizations Name Administration Dates Next Due TDAP [...] been in contact with No / Unsure 07/02/2020 2:40 PM CDT someone who was confirmed or suspected to have Coronavirus / COVID-19? documented as of this encounter Last Filed Vital Signs Vital Sign Reading Time Taken Comments Blood Pressure 120/63 07/02/2020 2:41 PM CDT Pulse 92 07/02/2020 2:41 PM CDT Temperature 37.2 C (98.9 F) 07/02/2020 2:41 PM CDT Respiratory Rate 16 07/02/2020 2:41 PM CDT Oxygen Saturation - - Inhaled Oxygen Concentration - - Weight 56.7 kg (124 lb 14.4 oz) 07/02/2020 2:41 PM CDT Height 157.5 cm (5' 2") 07/02/2020 2:41 PM CDT Body Mass Index 22.84 07/02/2020 2:41 PM CDT documented in this encounter Progress Notes Phylicia Barrientos RN - 07/02/2020 2:30 PM CDTPt DJ has been scheduled for IOL on 07/24/2020 @ 39.0wks, 0730. Stiven Malik FNP - 07/02/2020 2:30 PM CDT Chief complaint: Chief Complaint Patient presents with ROUTINE VISIT HPI CC: Follow Up Visit Priscila De Paz is a 19 year old, , /White female. Patient's last menstrual period was 10/25/2019 (within days). She is 35w6d with an intrauterine . Her estimated date of delivery is 07/31/2020, by Last Menstrual Period. She has no complaints today. She reports +FM and denies contractions, LOF and bleeding today. Reviewed OB/ER, PIH, labor and movement precautions. Encouraged patient to go to [facility] for any signs and symptoms of labor (regular contractions, LOF, vaginal bleeding or decrease movement.Patient denies current or past physical, sexual or [...] file Gets together: Not on file Attends catholic service: Not on file Active member of [...] Activity Sexual Activity Yes Partners: Male Labs No new labs Radiology Radiology pending. Allergies Priscila has No Known Allergies. Medications Priscila has a current medication list which includes the following prescription(s): ferrous sulfate and vitafol ultra. Review of Systems Eyes: Negative for visual disturbance. Cardiovascular: Negative for leg swelling. Gastrointestinal: Negative for abdominal pain, nausea and vomiting. Genitourinary: Negative for vaginal bleeding, vaginal discharge and pelvic pain. Neurological: Negative for headaches. BP 120/63 (BP Location: Right arm, Patient Position: Sitting, BP CUFF SIZE: Adult Small) | Pulse 92 | Temp 37.2 C (98.9 F) (Oral) | Resp 16 | Ht 5' 2" (1.575 m) | Wt 124 lb 14.4 oz (56.7 kg) | LMP 10/25/2019 (Within Days) | BMI 22.84 kg/m Pregravid BMI: 23.04 Physical Exam PHYSICAL: General Exam: Neurological: Normal Abdomen: Normal Extremities: Normal Pelvic Exam: Uterus: 34cm Weeks Assessment/Plan Supervision of high risk , antepartum (primary encounter diagnosis) Short interval between pregnancies affecting , antepartum History of pre-eclampsia in prior , currently Multip[facility] Comment:Routine Visit Plan: POCT URINALYSIS W/O SPECIFIC GRAVITY, SARS-COV-2 IGG, GROUP B STREPTOCOCCUS BY PCR, GC & CHLAMYDIA AMPLIFIED ASSAY, CBC WITH DIFF Denies zika virus risk, signs and symptoms such as fever,rash,joint pain, conjunctivitis (red eyes), muscle pain, headaches; outside [place] travel to areas affected by zika, and FOB exposure to zika.Educated on use of mosquito repellent. Covid x12 screening done, screening results are negative. Anemia of mother in , antepartum Comment: patient did not follow MFM plan due t transportation Plan: Patient educated on the risk of low HGG Recommendation for MFM Faculty: Anemia in - Microcytic - + hx in previous pregnancies - never evaluated before - negative FH for thalassemia - will send iron studies and start patient on ferrous sulfate TID - if confirmed iron def will send to [facility] for IV iron - if not will do electrophoresis IUGR (intrauterine growth restriction) affecting care of mother, third trimester, fetus 1 Comment: NST reactive and reassuring, patient instructed to call [facility] for weekly dopplers Plan: NON-STRESS TEST Return to clinic on for PNV and NST. Discussed treatment options. Medications as ordered. Reviewed patient instructions and provided printed copy. This visit did not involve counseling and coordination that comprised more than 50% of the visit time. VEE Irizarry 07/02/2020 3:24 PM documented in this encounter Plan of Treatment Date Type Specialty Care Team Description 07/05/2020 Routine Visit OB [facility] 2, Ang-Rmchp Nst Ultrasound 07/05/2020 Routine Visit OB [facility] La Sanches FNP [address] [place], [place] [address] [phone] 07/09/2020 Routine Visit OB [facility] 2, Ang-Rmchp Nst Ultrasound 07/09/2020 Routine Visit OB [facility] La Sanches FNP [address] [place], [place] [address] 07/12/2020 Routine Visit OB [facility] 1, Ang-Rmchp Nst Ultrasound 07/12/2020 Routine Visit OB [facility] La Sanches FNP [address] [place], [place] [address] 07/16/2020 Routine Visit OB [facility] 2, Ang-Rmchp Nst Ultrasound 07/16/2020 Routine Visit OB [facility] La Sanches FNP [address] [place], [place] [address] [phone] 07/19/2020 Routine Visit [facility] 1, Sergio-Rmchp Nst Ultrasound 07/19/2020 Routine Visit [facility] MyronLa, MEDICAL COLLECTOR [address] [place], [place] [address] [phone] 07/23/2020 Routine Visit [facility] 2, Sergio-Rmchp Nst Ultrasound 07/23/2020 Routine Visit [facility] La Sanches, MEDICAL COLLECTOR [address] [facility] [place] [place] [address] [phone] Name Type Priority Associated Diagnoses Order S chedule SARS-COV-2 IGG LAB Routine Supervision of high risk O rdered: 07/02/2020 , antepartum GROUP B STREPTOCOCCUS BY LAB Routine Supervision of h igh risk Expected: 07/02/2020, PCR , antepartum s: 07/02/2021 GC & CHLAMYDIA AMPLIFIED LAB Routine Supervision of h igh risk Expected: 07/02/2020, ASSAY , antepartum s: 07/02/2021 CBC WITH DIFF LAB Routine Supervision of high risk Ex pected: 07/02/2020, , antepartum s: 07/02/2021 Health Maintenance Due Date Last Done Comments [...] Name Priority Date/Time Associated Diagnosis Comme nts NON-STRESS Routine 07/02/2020 3:15 IUGR (intrauterine R esults for this TEST PM CDT growth restriction) procedur e are in affecting care of the result s mother, third section. trimester, fetus 1 POCT URINALYSIS W/O Routine 07/02/2020 Supervision of high R esults for this SPECIFIC GRAVITY risk , procedur e are in antepartum the results section. documented in this encounter Results NON-STRESS TEST (07/02/2020 3:15 PM CDT) Specimen Narrative Performed At This result has an attachment that is no t available. NST reactive and reassuring PACS Performing Organization Address City/State/Zipcode Phone Number PACS POCT URINALYSIS W/O SPECIFIC GRAVITY (07/02/2020) Pathologist Sig nature POCT PH U . [...] mother in , antepartu m Anemia, antepartum IUGR (intrauterine growth restriction) a ffecting care of mother, third trimester, fetus 1 documented in this encounter Insurance Payer Benefit Plan / Subscriber ID Effective Phone Address T e Group Dates JUAN PABLO ALMEIDA [id number] 2020-Pres [address] Medic aid HEALTHCARE [place]ARE [place] [id number] MANAGED MEDICAID [place], [place]ICAID [place] [address] 1 documented as of this encounter
--- OUTSIDE RECORDS SUMMARY | 2020-07-15 05:34 | XMS REPORT | Summary of Care ---
:2000 Author Organization [facility] Address [address] [place] [address] Care Team Providers Name Role Phone Pcp, Does Not Have A Primary Care Provider Reason for Visit Reason Comments ROUTINE VISIT Encounter Details Date Type Department Care Team Description 07/02/2020 Routine [facility]- Stiven Sanches upervision of high risk , antepartum (Primary Dx); Visit Ellsworth R, STRAW HAT BRIM RAISER OPERATOR Short interval between pregnancies affec ting , antepartum; [address] History o f pre-eclampsia in prior , currently ; [address]; [place], [place] Anemia of mothe r in , antepartum; [id number] IUGR (intrauterine growth restriction) a ffecting care of mother, third trimester, fetus 9 [phone] Allergies No Known Allergiesdocumented as of this encounter (statuses as of 07/02/2020) Medications Medication Sig Dispensed Refills Start Date [...] as of this encounter (statuses as of 07/02/2020) Active Problems Problem Noted Date IUGR (intrauterine [...] as of this encounter (statuses as of 07/02/2020) Resolved Problems Problem Noted Date Resolved Date [...] as of this encounter (statuses as of 07/02/2020) Immunizations Name Administration Dates Next Due TDAP [...] encounter Progress Notes Stiven Sanches, VEE - 07/02/2020 2:30 PM CDT Chief complaint: [...] movement precautions. Encouraged patient to go to [facility] for any signs and symptoms of labor [...] file Gets together: Not on file Attends pentecostal service: Not on file Active member of [...] Care Team Description 07/05/[address] [facility] 2, Ang-Rmchp Nst Ultrasound 07/05/[address] [facility] La Sanches FNP [address] [place], [place] [address] [phone] 07/09/[address] [facility] 2, Ang-Rmchp Nst Ultrasound 07/09/[address] [facility] [place] S[place] FNP [address] [place], [place] [address] 07/12/[address] [facility] 1, Ang-Rmchp Nst Ultrasound 07/12/[address] [facility] [place] Sanches FNP [address] [place], [place] [address] 07/16/[address] [facility] 2, Ang-Rmchp Nst Ultrasound 07/16/[address] [facility] [place] S[place] FNP [address] [place], [place] [address] 07/19/[address] [facility] 1, Ang-Rmchp Nst Ultrasound 07/19/[address] [facility] [place] Sanches FNP [address] [place], [place] [address] [phone] Name Type Priority Associated Diagnoses Order S [...] on patient's age to complete this to [facility] PNEUMOCOCCAL 0-64 YEARS Aged Out No longe r eligible based COMBINED SERIES on patient's age to complete this to [facility] WELL CARE VISIT: 12-21 YEARS [...] T e Group Dates JUAN PABLO ALMEIDA [id number] 2020-Pres [address] Medic aid [place] [id number] MANAGED MEDICAID [place], [place]ICAID [place] [address] 1 documented as of this encounter
--- OUTSIDE RECORDS SUMMARY | 2020-07-15 05:34 | XMS REPORT | Summary of Care ---
:2000 Author Organization [facility] Address [address] [place] [address] Care Team Providers Name Role Phone Pcp, Does Not Have A Primary Care Provider Reason for Visit Reason Comments LOW IRON Encounter Details Date Type Department Care Team Description 07/13/2020 Hospital Encounter Labor and Delivery ( JSA3) [facility]akeel Claire [address] [facility] [address] 301 [facility] [phone] [id number] [place], [place] [id number] Allergies No Known Allergiesdocumented as of this encounter (statuses as of 07/13/2020) Medications Medication Sig Dispensed Refills Start Date [...] as of this encounter (statuses as of 07/13/2020) Active Problems Problem Noted Date IUGR (intrauterine [...] as of this encounter (statuses as of 07/13/2020) Resolved Problems Problem Noted Date Resolved Date [...] as of this encounter (statuses as of 07/13/2020) Immunizations Name Administration Dates Next Due TDAP [...] been in contact with No / Unsure 07/13/2020 10:46 AM BUSINESS MANAGEMENT MANAGER someone who was confirmed or suspected to have Coronavirus / COVID-19? documented as of this encounter Last Filed Vital Signs Vital Sign Reading Time Taken Comments Blood Pressure 104/51 07/13/2020 12:30 PM BUSINESS MANAGEMENT MANAGER Pulse 80 07/13/2020 12:30 PM BUSINESS MANAGEMENT MANAGER Temperature 36.7 C (98 F) 07/13/2020 11:15 AM BUSINESS MANAGEMENT MANAGER Respiratory Rate 20 07/13/2020 12:30 PM BUSINESS MANAGEMENT MANAGER Oxygen Saturation 99% 07/13/2020 12:30 PM BUSINESS MANAGEMENT MANAGER Inhaled Oxygen Concentration - - Weight 56.2 kg (123 lb 14.2 oz) 07/13/2020 10:47 AM BUSINESS MANAGEMENT MANAGER Height - - Body Mass Index - - documented in this encounter ED Notes Aurora Pena RN - 07/13/2020 10:47 AM CSTDeskayy De Paz is a 20 year old female rec'd to ed triage ambulatory with stable gait patientsent to [facility] for iron infusion by ob.folder taper operator. Patient awake alert resp non labored speech clear full sentences, skin warm and dry color approp for race NESS MANAGEMENT MANAGER documented in this encounter Plan of Treatment Date Type Specialty Care Team Description 07/16/2020 Routine Visit OB [facility] [place], SUPERVISOR REWORK [address] [place] [address] [phone] 2, Ang-Rmchp Nst Ultrasound 07/16/2020 Routine Visit [facility] [place], SUPERVISOR REWORK [address] [place], [place] [address] [phone] 07/19/2020 Routine Visit OB [facility] 1, Sergio-Rmchp Nst Ultrasound 07/19/2020 Routine Visit [facility] SanchesLa earl, SUPERVISOR REWORK [address] [place], [place] [address] [phone] 07/23/2020 Routine Visit OB [facility] 2, Ang-Rmchp Nst Ultrasound 07/23/2020 Routine Visit [facility] [place], SUPERVISOR REWORK [address] [place], [place] [address] [phone] Name Type Priority Associated Diagnoses Date/Ti me LAB ONLY COVID LAB Routine 07/13/2020 11 :11 AM INTERPRETATION BUSINESS MANAGEMENT MANAGER Name Type Priority Associated Diagnoses Order S chedule LAB ONLY COVID LAB EDGAR ONCE for 1 Oc currences INTERPRETATION starting 02/2020 until 0 Health Maintenance Due Date Last Done Comments [...] on patient's age to complete this to [facility] PNEUMOCOCCAL 0-64 YEARS Aged Out No longe r eligible based COMBINED SERIES on patient's age to complete this to [facility] WELL CARE VISIT: 12-21 YEARS Discontinued (yearly) documented as of this encounter Procedures Procedure Name Priority Date/Time Associated Diagnosis Comme nts COVID-19 (ID NOW EDGAR 07/13/2020 11:11 AM Resu lts for this RAPID TESTING) BUSINESS MANAGEMENT MANAGER procedure are in the results section. documented in this encounter Results COVID-19 (ID NOW RAPID TESTING) (07/13/2020 11:11 AM BUSINESS MANAGEMENT MANAGER) SARS-CoV-2 Rapid ID Not Detected Not Detected [facility] Specimen Swab - NASOPHARYNGEAL SWAB Narrative Performed At ID NOW COVID-19 Assay is an isothermal nucleic acid [facility] amplification test intended for the qualitative detect ion of nucleic acid from SARS-CoV-2 viral RNA in nasopharynge al (SUBSTATION ELECTRICIAN SUPERVISOR) specimens. It is used under Emergency Use Authori zation (EUA) by FDA. The limit of detection (LOD) of the assa y is 125 Genome Equivalents/mL. A positive result is indicative of the presence of SARS-CoV-2 RNA. Clinical correlation with patient hi story and other diagnostic information is necessary to deter mine patient infection status. A negative (Not Detected) result does not preclude SARS-CoV-2 infection. In patients with clinical sympto ms and other tests that are consistent with SARS-CoV-2 infect ion, negative results should be treated as presumptive nega tive and a new specimen should be tested with alternative P CR molecular test. Invalid: Please collect a new specimen for repeat kwesi ent testing if clinically indicated. Performing Organization Address City/State/Zipcode Phone Number [facility] CLIA: [id number] [place], [place] [id number] [address] [place] [address] documented in this encounter Administered Medications Medication Order MAR Action Action Date Dose Rate Site iron dextran (INFED) 1,000 mg in NaCl 0. 9% (NS) 500 mL IV infusion 1,000 mg, IV Infusion, ONCE, 1 dose, Thu07/13/20 at 13 30, 500 mL iron dextran (INFED) 25 mg in NaCl 0.9% (NS) 100 mL IV piggyback 25 mg, IV Piggyback, ONCE, 1 dose, 07/13/20 at 1330 , 100 mL documented in this encounter Additional Health Concerns Infection Onset Date Last Indicated Resolved Time COVID-19 Rule Out 07/13/2020 07/13/2020 07/13/2020 12: 13 PM BUSINESS MANAGEMENT MANAGER documented as of this encounter Insurance Payer Benefit Plan / Subscriber ID Effective Phone Address T ype Group Dates JUAN PABLO ALMEIDA [id number] 2020-Pres [address]OX Medic aid [place] [id number] MANAGED MEDICAID [place], [place]ICAID [place] [address] 1 documented as of this encounter
--- OUTSIDE RECORDS SUMMARY | 2020-07-15 05:34 | XMS REPORT | Summary of Care ---
:2000 Author Organization [facility] Address [address] [place] [address] Care Team Providers Name Role Phone Pcp, Does Not Have A Primary Care Provider Reason for Visit Reason Comments ULTRASOUND (Routine) Status Reason Specialty Diagnoses / Referred By Referred To Procedures Contact Contact Closed Maternal Diagnoses Supervision of high risk , antepartum [place] [facility] Procedures CONSULT MATERNAL MEDICINE ULTRASOUND Preferred Location: Su N, OCC THER [address] [place] [address] Encounter Details Date Type Department Care Team Description 06/20/2020 [facility] Charan cant[facility], OCC THER [address] [place] [address] Intrauterine growth restriction affectin g care of mother, third trimester, not applicable or unspecified fetus; Ultrasound- Chandan Almanza MD [address] [facility] [id number] [place] [address] Supervision of with insufficie nt care in third trimester; [place] screening for malf ormation using ultrasonics [address] [place] [address] Allergies No Known Allergiesdocumented as [...] 39 weeks gestation of 03/18/2018 01/25/20 Liveborn by vaginal delivery 03/18/201801/06 documented as [...] Treatment Date Type Specialty Care Team Description 06/25/2020 Routine Visit [facility] [place], OCC THER [address] [place] [address] [phone] Health Maintenance Due Date Last Done Comments [...] on patient's age to complete this to [facility] PNEUMOCOCCAL 0-64 YEARS Aged Out No longe r eligible based COMBINED SERIES on patient's age to complete this to [facility] WELL CARE VISIT: 12-21 YEARS Discontinued (yearly) documented as of this encounter Results Not on filedocumented in this encounter Visit Diagnoses Diagnosis Intrauterine growth restriction affectin g care of mother, third trimester, not applicable or unspecified fetus Supervision of with insufficie nt care in third trimester Insufficient care screening for malformation usi ng ultrasonics Encounter for routine screening for malf ormation using ultrasonics documented in this encounter Insurance Payer Benefit Plan / Subscriber ID Effective Phone Address T e Group Dates JUAN PABLO ALMEIDA [id number] 2020-Pres P [address] BOX Medic aid [place] [id number] MANAGED MEDICAID [place], [place] [address] 1 documented as of this encounter
[2020-07-15] MEDS ORDERED: PENICILLIN 5 MU in NA CHLORIDE 0.9% 100 ML IV ONE (06:32)
[2020-07-15] MEDS ORDERED: METHYLERGONOVINE 0.2MG/ML AMP IM PRN (06:32)
[2020-07-15] MEDS ORDERED: BUTORPHANOL 1 MG/ML INJ IV PRN (06:32)
[2020-07-15] MEDS ORDERED: PROMETHAZINE INJ 25 MG/ML AMP IM PRN (06:32)
[2020-07-15] MEDS ORDERED: Ringers Lactate 1,000 ML IV PRN (06:32)
[2020-07-15] MEDS ORDERED: FENTANYL CITR 100 MCG/2 ML IV ONE (06:37)
[2020-07-15] MEDS ORDERED: Ringers Lactate 1,000 ML IV SCH (07:00)
[2020-07-15] MEDS ORDERED: BUTORPHANOL 1 MG/ML INJ ONE (07:00)
[2020-07-15] MEDS ORDERED: PROMETHAZINE INJ 25 MG/ML AMP ONE (07:01)
[2020-07-15] MEDS ORDERED: 0.2% ROPIVACAINE (200 MG/100 ML) BAG EP ONE (07:11)
[2020-07-15] MEDS ORDERED: ROPIVACAINE HCL 0.2% 20ML AMP IV ONE (07:12)
[2020-07-15 07:15] LABS: Urine Appearance CLOUDY; Urine Bilirubin NEGATIVE (NEG); Urine Blood 3+ (NEG); Urine Color YELLOW; Urine Glucose NEGATIVE (NEG); Urine Protein TRACE (NEG); Urine Specific Gravity 1.025 (1.005-1.030); Urine pH 7.5 (5.0-7.0)
[2020-07-15 07:19] LABS: Absolute Lymphocytes (CBC) 1.6 K/uL (0.7-4.9); Basophils % 0.2 % (0-1.3); Hematocrit 30.8 % (36.0-45.0); Lymphocytes % 20.1 % (15.3-44.8); MPV 9.4 fL (7.6-11.3); RBC Red Blood Cell Count 4.55 M/uL (3.86-4.86)
[2020-07-15 07:21] LABS: Urine Microscopic Reflex ORDER UMIC
[2020-07-15 07:30] LABS: Urine RBC >50 /HPF (NONE SEEN)
[2020-07-15 07:31] LABS: Urine Bacteria <20 /HPF (<20); Urine Culture Reflex Order REFLEXED
[2020-07-15 07:35] VITALS: BMI 22.6
[2020-07-15] MEDS ORDERED: OXYTOCIN/LR 20 UNIT/1,000 ML BAG IV SCH ×2 (07:45→11:00)
[2020-07-15] MEDS ORDERED: CARBOPROST TROME 250 MCG/ML IM PRN (07:46)
[2020-07-15] MEDS ORDERED: OXYTOCIN/LR 20 UNIT/1,000 ML BAG IV ONE (08:04)
[2020-07-15] MEDS ORDERED: LIDOCAINE 2% INJ, 20 mL 0 ML ONE (08:29)
[2020-07-15 08:38] LABS: Anisocytosis 2+; Blood Morphology Comment NOTED (NOT SEEN); Platelet Estimate ADEQ
[2020-07-15 08:39] LABS: Elliptocytes 1+; Hypochromasia 1+; Ovalocytes 1+; Poikilocytosis 1+
[2020-07-15] MEDS ORDERED: PENICILLIN 2.5 MU in NA CHLORIDE 0.9% 100 ML IV SCH (10:30)
[2020-07-15] MEDS ORDERED: DOCUSATE NA/SENNA CONC 1 TAB PO PRN (10:54)
[2020-07-15] MEDS ORDERED: Oxycodone HCl/Acetaminophen 1 TAB TAB PO PRN ×2 (10:54)
[2020-07-15] MEDS ORDERED: ACETAMINOPHEN 500 MG TAB PO PRN (10:54)
[2020-07-15] MEDS ORDERED: DIPHENHYDRAMINE 25 MG TAB/CAP PO PRN (10:54)
[2020-07-15] MEDS ORDERED: BISACODYL 10 MG RECTAL SUPP PR PRN (10:54)
--- NOTE | 2020-07-15 11:20 | PN ---
The patient is now 6 cm, 100% effaced, 0 station. Requesting epidural. We will hydrate her. Her pl atelet levels are 165,000, which are good. The patient states that she is needing to push, but of co urse she is not completely dilated at this point and we have advised against that. ROXANE/CARLOS Voice ID: [id number] Report ID: [id number]
[2020-07-15] MEDS: IBUPROFEN 200 MG TAB PO PRN (19:20)
[2020-07-16 02:36] LABS: RPR (Rapid Plasma Reagin) NON-REACT (NON-REACT)
[2020-07-16] MEDS: IBUPROFEN 200 MG TAB PO PRN ×2 (05:15→12:33)
--- NOTE | 2020-07-16 07:28 | DS ---
Priscila De Paz is a 20-year-old 3, para 2, at 37 weeks 5 days, came in early labor. Subsequ ently, delivered a 5 pounds 13 ounces male, Apgars 9 and 9. Nuchal cord x1. One very small first-de gree mucosal tear, 1 tjushx-nx-nrpoc stitch 2-0 chromic. Schultze delivery of the placenta was inspe cted and noted to be intact and normal. Less than 300 mL blood loss. Beta strep positive, therefore penicillin prophylaxis x1 dose 5 million units. Rh positive, immune to rubella, afebrile , ambulating and voiding. The patient had epidural, has no post epidural problems. Requests no anal gesics on dismissal. Tdap and flu shots offered and discussed. Final Diagnoses: Intrauterine gestation, 37 weeks 5 days, followed by [facility]. Vaginal delivery , epidural anesthesia. Penicillin prophylaxis. Tdap and flu shots offered. ROXANE/CARLOS Voice ID: [id number] Report ID: [id number]
--- NOTE | 2020-07-16 11:04 | OP ---
Surgeon: Buddy Otto MD is 20-year-old, 3, para 2, 37 weeks and 5 days, came in early labor. Had Stadol 1 mg IV, Phenergan 25 mg IM. At 8 cm, got epidural anesthesia. Second stage of about 15 minutes or l ess. Spontaneous vaginal delivery of 5 pounds and 13 ounces male , Apgars 9 and 9. Nuchal cor d x1. Very small first-degree tear requiring 1 ggpaah-wb-duuqu stitch and 2-0 chromic on the right s carolin of the introitus upper portion. Schultze delivery. The placenta was inspected and noted to be i ntact and normal less than 300 mL blood loss. Uterus contracted down well with IV drip Pitocin and m assage. The patient tolerated all procedures well. Final Diagnoses: Term intrauterine 37 weeks and 5 days, [facility] drop in, beta-strep positive. Penicillin prophylaxis 1 dose given. Epidural anesthesia. ROXANE/CARLOS Voice ID: [id number] Report ID: [id number]
--- NOTE | 2020-07-16 11:07 | PREOPHP ---
Date of Admission: 07/15/2020 History Of Present Illness: Priscila Willson is 20-year-old 3, para 2 at 37 weeks 5 day s, followed antepartum at [facility] [address], dropped in to our institution reporting labor. Indeed, the pa lena is in labor. She changed from 3-1/2 and 4-1/2 during observation period and was having irregul ar, but firm contractions and said she wanted to stay here, did not wish to transfer. Her chart on m y chart shows she is Rh positive, immune to rubella, positive beta strep screen. She has been starte d on penicillin. She gives a history that with her second delivery she had what sounds like uterine hypotonus, blood more than normal, but did not receive a blood transfusion. We will have Methergine in the room ready of course. FHTs not extremely reactive at this point, but the patient has had a 1 mg of Stadol at her request. Rupture of membranes, clear fluid. She is now 4-1/2, 90%, -1 station. She has had penicillin an hour and a half ago or approximately. We will start light Pitocin at this point. We will check her in half an hour. She is wanting epidural as soon as she reaches 5 cm. La bor talk given. Family History: Not thought to be contributory. Allergies: SHE HAS NO ALLERGIES. Medications: vitamins. Social History: Apparently does not smoke. Physical Examination: HEENT: Clear. Pupils equal, round, reactive to light and accommodation. Conjunctivae well perfused . No oral, lingual, or buccal lesions. Chest and Lungs: According to nursing, auscultation clear. Heart: Again clear. Breasts: Not examined. Abdomen: Term size. The patient is a very small woman. Says last baby weighed 7 pounds. I would t hink this one is probably the same or slightly less. Extremities: Clear without edema, cyanosis, or clubbing. Plan: Anticipate relatively rapid delivery once we get into more active phase. ROXANE/CARLOS Voice ID: [id number]
[2020-07-16 12:20] VITALS: BP 114/64; TEMP 98.4
== END 2020-07-16 13:35 | disposition home or self-care (01) | DRG 807 ==
LOC: L&D 05:30 → 2ND-WC 06:34
PROVIDERS: ADMIT Specialist; ATTEND Specialist
PROC: 10E0XZZ Delivery of Products of Conception, External Approach (ICD-10-PCS; principal; 2020-07-16)
PROC: 0HQ9XZZ Repair Perineum Skin, External Approach (ICD-10-PCS; 2020-07-16)
DX: O99.824 Streptococcus B carrier state complicating childbirth (principal); Z37.0 Single live birth; O70.0 First degree perineal laceration during delivery; Z3A.37 37 weeks gestation of pregnancy
CPT/HCPCS: 36415; 81003; 81015; 85025; 86592; 86850; 86900; 86901; 87086; 87088; 87340; 99218; J0595; J2210; J2540; J2550; J2590; J2795; J3010; J7120

== ENCOUNTER 2020-12-27 14:57 | Observation (INO) | payer MEDICAID ==
[2020-12-27] MEDS ORDERED: MORPHINE 4 MG/ML SYR ONE (16:40)
[2020-12-27] MEDS ORDERED: ONDANSETRON 4 MG/2 ML VIAL ONE ×2 (16:40→18:42)
[2020-12-27 16:44] LABS: Urine Blood Negative (Negative); Urine Glucose Negative (Negative); Urine Protein Negative (Negative); Urine Specific Gravity >=1.030 (1.005-1.030); Urine pH 5.5 (5.0-7.0)
[2020-12-27 16:49] LABS: Absolute Lymphocytes (CBC) 1.3 K/uL (0.7-4.9); Basophils % 0.2 % (0-1.3); Hematocrit 32.5 % (36.0-45.0); MPV 10.6 fL (7.6-11.3); RBC Red Blood Cell Count 4.72 M/uL (3.86-4.86)
[2020-12-27 17:11] LABS: ALT/SGPT 17 U/L (12-78); AST/SGOT 14 U/L (15-37); Albumin 4.3 g/dL (3.4-5.0); Alkaline Phosphatase 73 U/L (45-117); BUN Blood Urea Nitrogen 16 mg/dL (7-18); Bicarbonate 25 mmol/L (21-32); Bilirubin Direct 0.2 mg/dL (0-0.2); Bilirubin Total 0.7 mg/dL (0.2-1.0); Glucose Level 83 mg/dL (74-106); Lipase 81 U/L (73-393); Potassium 3.4 mmol/L (3.5-5.1); Protein, Total 8.3 g/dL (6.4-8.2); Sodium Level 140 mmol/L (136-145)
--- NOTE | 2020-12-27 17:12 | RAD REPORT ---
EXAM DESCRIPTION: CTAbdomen Pelvis W Contrast - 12/27/2020 4:58 pm CLINICAL HISTORY: Abdominal pain. RLQ and epigastric pain;Abd pain COMPARISON: No comparisons TECHNIQUE: Biphasic CT imaging of the abdomen and pelvis was performed with 100 ml non-ionic IV cont rast. All CT scans are performed using dose optimization technique as appropriate and may include automated exposure control or mA/KV adjustment according to patient size. FINDINGS: The lung bases are clear. The liver, spleen, pancreas, adrenal glands and kidneys are within normal limits. No bowel obstruction, free air, free fluid or abscess. The appendix is upper limit of normal measuri ng 7- 8 mm in diameter and there is mild free fluid seen in the right lower quadrant. Mild fluid is a lso seen in the pelvis. No evidence of significant lymphadenopathy. No suspicious bony findings. IMPRESSION: Mildly prominent appendix with mild fluid in the right lower quadrant is suspicious for early acute appendicitis.
--- NOTE | 2020-12-27 17:41 | EDPHYS ---
Physician Documentation [facility] Name: Priscila De Paz Age: 20 yrs Sex: Female : 2000 Arrival Date: 12/27/2020 Time: 14:58 Bed 30 Private MD: ED Physician Marino [place] HPI: 12/27 16:21 This 20 yrs old Female presents to ER via Ambulatory with complaints of rn Epigastric Pain. 16:21 The patient presents with abdominal pain in the epigastric area. Onset: The rn symptoms/episode began/occurred this morning. The symptoms do not radiate. Associated signs and symptoms: Pertinent positives: nausea and vomiting, Pertinent negatives: anorexia, blood in stools, chest pain, constipation, diarrhea, dysuria, fever. The symptoms are described as intermittent, sharp. Modifying factors: The symptoms are alleviated by nothing, the symptoms are aggravated by touching the area. Severity of pain: At its worst the pain was moderate in the emergency department the pain has improved. The patient has not experienced similar symptoms in the past. The patient has not recently seen a physician. Reports abd pain since this morning, sharp, intermittent, has not felt this before, no fever, + vomiting x 1, no diarrhea. Reports worse on drive here, position does not change pain. No urinary symptoms. Reports just off her cycle. Does not believe she is . . BULK SEALER: 15:31 LMP 12/12/2020 ca1 Historical: - Allergies: 15:30 No Known Allergies; ca1 - Home Meds: 15:30 None [Active]; ca1 - PMHx: 15:30 None; ca1 - PSHx: 15:30 None; ca1 - Immunization history:: Flu vaccine is up to date. - Social history:: Smoking status: Reported history of juuling and/or vaping. - Family history:: not pertinent. - Hospitalizations: : No recent hospitalization is reported. ROS: 16:21 Constitutional: Negative for fever, chills, and weight loss, Eyes: Negative for injury, rn pain, redness, and discharge, ENT: Negative for injury, pain, and discharge, Neck: Negative for injury, pain, and swelling, Cardiovascular: Negative for chest pain, palpitations, and edema, Respiratory: Negative for shortness of breath, cough, wheezing, and pleuritic chest pain, Abdomen/GI: + epigastric and RLQ pain, + nausea and vomiting, no diarrhea Back: Negative for injury and pain, : Negative for injury, bleeding, discharge, and swelling, MS/Extremity: Negative for injury and deformity, Skin: Negative for injury, rash, and discoloration, Neuro: Negative for headache, weakness, numbness, tingling, and seizure. Exam: 16:21 Constitutional: This is a well developed, well nourished patient who is awake, alert, rn and in no acute distress. Head/Face: Normocephalic, atraumatic. Eyes: Periorbital areas with no swelling, redness, or edema. ENT: MMM Cardiovascular: Regular rate and rhythm. No pulse deficits. Respiratory: No increased work of breathing, no retractions or nasal flaring. Abdomen/GI: Soft, + mild epigastric and RLQ tenderness, neg mayo, no rebound Skin: Warm, dry MS/ Extremity: Pulses equal, no cyanosis. Neuro: Awake and alert, GCS 15 Vital Signs: 15:28 BP 111 / 77; Pulse 93; Resp 18 S; Temp 96.9; Pulse Ox 100% on R/A; Weight 50.8 kg (R); ca1 Height 5 ft. 2 in. (157.48 cm) (R); Pain 9/10; 16:38 BP 111 / 61; Pulse 79; Resp 16; Pulse Ox 100% on R/A; zb 17:30 BP 110 / 64; Pulse 80; Resp 16; Pulse Ox 98% on R/A; zb 15:28 Body Mass Index 20.48 (50.80 kg, 157.48 cm) ca1 MDM: 16:09 Patient medically screened. rn 17:33 Differential diagnosis: appendicitis, gastritis, gastroesophageal reflux disease, rn non-specific abd pain, Pyelonephritis, Ureterolithiasis, urinary tract infection. Data reviewed: vital signs, nurses notes, lab test result(s), radiologic studies, CT scan, and as a result, I will discharge patient. Counseling: I had a detailed discussion with the patient and/or guardian regarding: the historical points, exam findings, and any diagnostic results supporting the discharge/admit diagnosis, lab results, radiology results, the need for outpatient follow up, to return to the emergency department if symptoms worsen or persist or if there are any questions or concerns that arise at home. Response to treatment: the patient's symptoms have mildly improved after treatment, and as a result, I will discharge patient. 17:39 Admission orders: after a detailed discussion of the patient's condition and case, the corn press operator orders are written by me. ED course: Consulted with Dr. Sloan, will call out OR team for appendectomy, zosyn ordered, COVID swab obtained, NPO since last night.. 12/27 16:18 Order name: Basic Metabolic Panel; Complete Time: 17:31 rn 12/27 16:18 Order name: CBC with Diff rn 12/27 16:18 Order name: Hepatic Function; Complete Time: 17:31 12/27 16:18 Order name: Lipase; Complete Time: 17:31 12/27 16:44 Order name: Urine Dipstick-Ancillary; Complete Time: 17:31 [facility] 12/27 17:38 Order name: Urine --Ancillary (enter results) [facility] 12/27 16:18 Order name: IV Saline Lock; Complete Time: 16:35 12/27 16:18 Order name: CT Abd/Pelvis - IV Contrast Only; Complete Time: 17:31 12/27 17:40 Order name: COVID-19 : Document "Date of Symptom Onset" if Symptomatic. [facility] 12/27 17:40 Order name: CORONAVIRUS [facility] 12/27 19:00 Order name: SARS-COV-2 RT PCR [facility] 12/27 16:18 Order name: Labs collected and sent; Complete Time: 16:35 12/27 17:36 Order name: NPO; Complete Time: 17:38 rn Administered Medications: 16:30 Drug: Zofran (Ondansetron) 4 mg Route: IVP; Site: right antecubital; zb 16:45 Follow up: Response: No adverse reaction; No change in condition zb 16:30 Drug: morphine 4 mg {Note: rass +1.} Route: IVP; Site: right antecubital; zb 16:45 Follow up: Response: No adverse reaction; Marked relief of symptoms; Pain is decreased; zb RASS: Alert and Calm (0) 18:27 Not Given (given to BASEBALL PITCHER ): Zosyn 3.375 grams IVPB once over 60 mins; (mix in NS 100 zb mL) Disposition: 12/27/20 17:40 Hospitalization ordered by Noman Sloan for Observation. Preliminary diagnosis is Acute appendicitis. - [facility]. - Status is Observation. iw - Condition is Stable. - Problem is new. - Symptoms have improved. Signatures: Dispatcher [employer] EDMS Ruth Tang RN Rea Hilario, RN RN Marino Gallegos MD MD rn Acob, Cheryl, RN Riri Kirby RN FELICIA zisis Corrections: (The following items were deleted from the chart) 19:20 17:40 Hospitalization Ordered by Noman Solan MD for Observation. Preliminary diagnosis mw is Acute appendicitis. Bed requested for Telemetry/MedSurg (observation). Status is Observation. Condition is Stable. Problem is new. Symptoms have improved. rn 19:30 19:20 12/27/2020 17:40 Hospitalization Ordered by Noman Sloan MD for Observation. iw Preliminary diagnosis is Acute appendicitis. Bed requested for [facility]. Status is Observation. Condition is Stable. Problem is new. Symptoms have improved. mw
--- NOTE | 2020-12-27 17:41 | ER ---
Nurse's Notes [facility] Name: Priscila De Paz Age: 20 yrs Sex: Female : 2000 Arrival Date: 12/27/2020 Time: 14:58 Bed 30 Private MD: Diagnosis: Acute appendicitis Presentation: 12/27 15:28 Chief complaint: Patient states: 1130 today, started having epigastric pain going down ca1 the lower abdominal area. +N/V. Coronavirus screen: Client denies travel out of the [place] in the last 14 days. nausea, vomiting. Client presents with at least one sign or symptom that may indicate coronavirus-19. Standard/surgical mask placed on the client. Provider contacted for isolation considerations. Ebola Screen: Patient negative for fever greater than or equal to 101.5 degrees Fahrenheit, and additional compatible Ebola Virus Disease symptoms Patient denies exposure to infectious person. Patient denies travel to an Ebola-affected area in the 21 days before illness onset. No symptoms or risks identified at this time. Initial Sepsis Screen: Does the patient meet any 2 criteria? No. Patient's initial sepsis screen is negative. Does the patient have a suspected source of infection? No. Patient's initial sepsis screen is negative. Risk Assessment: Do you want to hurt yourself or someone else? Patient reports no desire to harm self or others. Onset of symptoms was December 27, 2020. 15:28 Method Of Arrival: Ambulatory ca1 15:28 Acuity: TARIK 3 ca1 EMERGENCY MEDICAL SERVICE COORDINATOR: 15:31 LMP 12/12/2020 ca1 Historical: - Allergies: 15:30 No Known Allergies; ca1 - Home Meds: 15:30 None [Active]; ca1 - PMHx: 15:30 None; ca1 - PSHx: 15:30 None; ca1 - Immunization history:: Flu vaccine is up to date. - Social history:: Smoking status: Reported history of juuling and/or vaping. - Family history:: not pertinent. - Hospitalizations: : No recent hospitalization is reported. Screenin:37 Abuse screen: Denies threats or abuse. Denies injuries from another. Nutritional zb screening: No deficits noted. Tuberculosis screening: No symptoms or risk factors identified. Fall Risk None identified. Assessment: 16:35 General: Appears in no apparent distress. uncomfortable, Behavior is calm, cooperative, zb appropriate for age. Pain: Complains of pain in epigastric area Pain does not radiate. Pain currently is 9 out of 10 on a pain scale. Quality of pain is described as burning, throbbing, Alleviated by nothing. Aggravated by eating, drinking, Noted to be guarding, Also complains of nausea. Neuro: Level of Consciousness is awake, alert, obeys commands, Oriented to person, place, time, situation. Cardiovascular: Patient's skin is warm and dry. Respiratory: Airway is patent Respiratory effort is even, unlabored, Respiratory pattern is regular, symmetrical. GI: Abdomen is flat, Bowel sounds present X 4 quads. Reports upper abdominal pain. Derm: Skin is intact, is healthy with good turgor. Musculoskeletal: Range of motion: intact in all extremities. 17:39 Reassessment: ecp at bedside. zb 18:24 Reassessment: patient left to OR- given Zosyn given to OR Nurse. zb Vital Signs: 15:28 BP 111 / 77; Pulse 93; Resp 18 S; Temp 96.9; Pulse Ox 100% on R/A; Weight 50.8 kg (R); ca1 Height 5 ft. 2 in. (157.48 cm) (R); Pain 9/10; 16:38 BP 111 / 61; Pulse 79; Resp 16; Pulse Ox 100% on R/A; zb 17:30 BP 110 / 64; Pulse 80; Resp 16; Pulse Ox 98% on R/A; zb 15:28 Body Mass Index 20.48 (50.80 kg, 157.48 cm) ca1 ED Course: 14:29 Inserted saline lock: 20 gauge in right antecubital area, using aseptic technique. zb Blood collected. 14:58 Patient arrived in ED. as 15:30 Triage completed. ca1 15:30 Arm band placed on right wrist. ca1 16:09 Marino Beach MD is Attending Physician. rn 16:19 Riri Marshall RN is Primary Nurse. zb 16:37 Patient has correct armband on for positive identification. Bed in low position. Call zb light in reach. Side rails up X 1. Pulse ox on. NIBP on. Door closed. Noise minimized. 16:58 CT Abd/Pelvis - IV Contrast Only In Process Unspecified. EDMS 17:40 Noman Sloan MD is Hospitalizing Provider. rn 18:24 No provider procedures requiring assistance completed. Patient admitted, IV remains in zb place. Administered Medications: 16:30 Drug: Zofran (Ondansetron) 4 mg Route: IVP; Site: right antecubital; zb 16:45 Follow up: Response: No adverse reaction; No change in condition zb 16:30 Drug: morphine 4 mg {Note: rass +1.} Route: IVP; Site: right antecubital; zb 16:45 Follow up: Response: No adverse reaction; Marked relief of symptoms; Pain is decreased; zb RASS: Alert and Calm (0) 18:27 Not Given (given to BOTTOMING ROOM SUPERVISOR ): Zosyn 3.375 grams IVPB once over 60 mins; (mix in NS 100 zb mL) Outcome: 17:40 Decision to Hospitalize by Provider. rn 18:24 Discharged to home ambulatory. zb 18:24 Condition: stable 18:24 Instructed on the need for admit, Demonstrated understanding of instructions. 19:30 Patient left the ED. iw Signatures: Dispatcher [employer] Ida Sapp Irene, FELICIA RN Marino Gallegos MD MD rn Acob, Cheryl, RN RN ca1 Brown, Zipporah, RN RN zb
[2020-12-27] MEDS ORDERED: PIPER/TAZO/NS 3.375gm 3.375 GM/100 ML BAG ONE (18:36)
[2020-12-27] MEDS ORDERED: propofoL 200 MG/20 ML VIAL IV ONE (18:39)
[2020-12-27] MEDS ORDERED: LIDOCAINE 1% MPF 2 ML AMPULE ONE (18:39)
[2020-12-27] MEDS ORDERED: LIDOCAINE 1% MPF 5 ML VIAL ONE (18:40)
[2020-12-27] MEDS ORDERED: KETOROLAC 30 MG/ML INJ ONE (18:41)
[2020-12-27] MEDS ORDERED: dexAMETHasone 10 MG/ML VIAL ONE (18:41)
[2020-12-27] MEDS ORDERED: FENTANYL CITR 100 MCG/2 ML ONE (18:41)
[2020-12-27] MEDS ORDERED: ROCURONIUM 50 MG/5 ML VIAL IV ONE (18:41)
[2020-12-27] MEDS ORDERED: Ringers Lactate 1,000 ML IV ONE (18:54)
[2020-12-27] MEDS ORDERED: BUPIVACAINE 0.5% PF 10 ML VIAL ONE ×2 (19:02)
[2020-12-27] MEDS ORDERED: GLYCOPYRROLATE 0.2 MG/ML SYR ONE (19:44)
[2020-12-27] MEDS ORDERED: NEOSTIGMINE 1 MG/ML -5 ML ONE (19:44)
--- NOTE | 2020-12-27 19:45 | P.OP ---
Rod Welder: NONE,NONE Preoperative diagnosis: Acute Appendicitis Postoperative diagnosis: same Primary procedure: Lap Appy Anesthesia: General Estimated blood loss: min Specimen: Appy Findings: as above Complications: None Transferred to: Recovery Room Condition: Good
[2020-12-27] MEDS ORDERED: HYDROMORPHONE HCL 1 MG/ML INJ IV PRN (20:17)
[2020-12-27] MEDS ORDERED: ONDANSETRON 4 MG/2 ML VIAL IV PRN (20:17)
[2020-12-27] MEDS ORDERED: Ringers Lactate 1,000 ML IV SCH (20:17)
[2020-12-27] MEDS ORDERED: HYDROMORPHONE HCL 1 MG/ML INJ ONE (20:21)
[2020-12-27 20:48] LABS: Blood Morphology Comment NOTED (NOT SEEN); Hypochromasia 1+; Platelet Estimate ADEQ; White Blood Cell Scan OK (OK)
[2020-12-27 20:57] VITALS: BMI 20.1
[2020-12-27] MEDS: CEFOXITIN/SWI 1gm 1 GM/10 ML SYR IV SCH (21:00)
--- NOTE | 2020-12-27 21:05 | OP ---
Date of Procedure: 12/27/2020 Surgeon: Noman Sloan MD Cartography/Mapping Technician: None. Preoperative Diagnosis: Acute appendicitis. Postoperative Diagnosis: Acute appendicitis. Procedure: Laparoscopic appendectomy. Estimated Blood Loss: Minimal. Specimen: Appendix. Findings: As above. Anesthesia: General. Complications: None. Disposition: The patient tolerated the procedure in stable condition and taken to Recovery in good g eneral condition. Procedure In Detail: The patient was brought to the OR and placed in supine position and general ane sthesia was begun. The patient was prepped and draped in usual sterile fashion. Marcaine 0.5% was i nfiltrated locally. A 15 blade was used to make a 1 cm infraumbilical midline incision. Subcutaneou s tissue was divided. Fascia was identified and divided. #1 Vicryl stay suture was placed. Periton eal cavity was entered with sharp and blunt dissection. A 12-mm trocar was placed into the peritonea l cavity under direct vision. Pneumoperitoneum was established and then two 5 trocars were placed, 1 in the suprapubic region, 1 in the left lower quadrant. Laparoscopy revealed acute appendicitis wit h indurated and injected appendix in the right lower quadrant with fluid around it. Fluid was aspira silvino. Normal uterus, ovaries, tubes were seen. Normal small bowel and colon were seen. No peritonea l evidence of disease was seen. No other evidence of disease was seen. The appendix and base of the appendix were clearly identified. Mesoappendix was divided with Endo-JADIEL stapling device from the a ppendiceal artery. There was minimal oozing noted and a vascular clip was used to control that easil y and then the appendix was divided and retrieved through the umbilicus via an EndoCatch bag utilizin g Endo stapling device and then on right lower quadrant exam no evidence of bleeding or bowel injury appreciated. Subsequently, all trocars were removed under direct vision. Stay sutures were tied to each other to reapproximate the fascial defect. Subcutaneous wounds were irrigated. Bleeding was co ntrolled with cautery. A 3-0 chromic was used to reapproximate the subcutaneous tissue and close the skin. Sterile dressing was applied. The patient was awakened and taken to Recovery in good general condition. /MODL Voice ID: [id number] Report ID: [id number]
[2020-12-27] MEDS ORDERED: CEFOXITIN/SWI 1gm 1 GM/10 ML SYR ONE (21:27)
--- NOTE | 2020-12-27 22:50 | PREOPHP ---
Date of Admission: 12/27/2020 Reason: Abdominal pain. History Of Present Illness: The patient is a 20-year-old female, who awoke with periumbilical pain g oing down to the right lower quadrant, associated with nausea, but no vomiting. She does have anorex ia. No diarrhea or constipation. No blood in her stool. No dysuria or hematuria. No sore throat, runny nose, cough, headaches, or dizziness. No fever. Occasional chills. Review of Systems: Otherwise unremarkable. Past Medical History: Negative. Past Surgical History: Negative. Allergies: NONE. Social History: She smokes and drinks occasionally. Family History: Diabetes in a grandparent. Physical Examination: VITAL SIGNS: Stable. She is currently afebrile. GENERAL: She is awake, alert, and oriented x3. HEAD AND NECK: Cranial 2 through 12 grossly within normal limits. No neck masses. No JVD. Throat clear. Neck is supple. Chest: Clear. Heart: S1, S2. Abdomen: Soft, nondistended. Positive bowel sounds. Positive right lower quadrant tenderness with rebound. No rigidity or guarding. Extremities: Adequately perfused. Nontender. Neurologic: Nonfocal. Laboratory Data: White count is 14.6 with a left shift, H and H are 9.9 and 32.5. Chemistry reviewe d. Potassium is slightly low at 3.4. CT of the abdomen and pelvis reviewed. Essentially, the patie nt has mild prominence of the appendix with fluid in the right lower quadrant and pelvis consistent w ith acute early appendicitis. Assessment: Acute appendicitis. Plan: Admit n.p.o., IV fluid, IV antibiotic, to the OR for laparoscopic appendectomy, possible open. The patient understands the risks, benefits, and alternatives, and agrees to procedure. /MODL Voice ID: [id number]
[2020-12-27] MEDS: HYDROCODONE/APAP 7.5/325 MG TAB PO PRN (23:23)
[2020-12-28] MEDS ORDERED: CEFOXITIN SODIUM 1 GM/VIAL IVPB SCH
[2020-12-28] MEDS: CEFOXITIN/SWI 1gm 1 GM/10 ML SYR IV SCH (03:00)
[2020-12-28] MEDS ORDERED: CEFOXITIN SODIUM 1 GM/VIAL ONE (03:16)
[2020-12-28 05:57] LABS: Absolute Lymphocytes (CBC) 0.8 K/uL (0.7-4.9); Basophils % 0.1 % (0-1.3); Hematocrit 27.4 % (36.0-45.0); Lymphocytes % 12.1 % (15.3-44.8); MPV 9.9 fL (7.6-11.3); RBC Red Blood Cell Count 4.01 M/uL (3.86-4.86)
[2020-12-28 07:47] VITALS: O2SAT 100
[2020-12-28 10:21] LABS: Anisocytosis 1+; Blood Morphology Comment NOTED (NOT SEEN); Hypochromasia 1+; Platelet Estimate ADEQ; White Blood Cell Scan OK (OK)
[2020-12-28] MEDS: HYDROCODONE/APAP 7.5/325 MG TAB PO PRN (10:55)
--- NOTE | 2020-12-28 11:30 | DS ---
Date of Discharge: 12/28/2020 Admitting Diagnosis: Acute appendicitis. Discharge Diagnosis: Acute appendicitis. Procedure Performed: Laparoscopic appendectomy. Hospital Course: The patient is a 20-year-old female who underwent the aforementioned procedure. Po stoperatively, she is tolerating diet, ambulating, pain control on p.o. pain medication, afebrile, th erefore the patient will be discharged to home. Please note, the patient is anemic and has been havi ng heavy periods and she is supposed to follow up with her DATA MODELING SPECIALIST and this has happened since her last p regnancy. Disposition: Home. Condition: Stable. Discharge Instructions: Resume home meds and diet. Activity as tolerated. No heavy lifting. May s hower in a.m. Keep wound clean and dry. Keep Steri-Strips on at all times. Follow up with her DATA MODELING SPECIALIST. Follow up in my office in 1 week. Call for appointment. Tylenol or Advil for pain. /MODL Voice ID: [id number] Report ID: [id number]
[2020-12-28] MEDS ORDERED: CEFOXITIN/SWI 1gm 1 GM/10 ML SYR IV SCH (12:00)
[2020-12-28 12:14] VITALS: BP 95/52; TEMP 98.3
[2020-12-28] MEDS ORDERED: CEFOXITIN/SWI 1gm 1 GM/10 ML SYR IV ONE (13:00)
== END 2020-12-28 14:05 | disposition home or self-care (01) ==
LOC: ER 14:57 → ERHOLD 17:41 → 2ND-WC 19:53
PROVIDERS: ADMIT Surgery; ATTEND Surgery
PROC: 0DTJ4ZZ Resection of Appendix, Percutaneous Endoscopic Approach (ICD-10-PCS; principal; 2020-12-27 18:45)
DX: K35.80 Unspecified acute appendicitis (principal); D64.9 Anemia, unspecified; F17.290 Nicotine dependence, other tobacco product, uncomplicated; Z20.822 Contact with and (suspected) exposure to COVID-19
CPT/HCPCS: 85025 ×2; 80048; 36415; 81025; 82565; 80076; 88304; 81003; 83690; 74177; 94010; 96375; 96374; 99284; 44970; U0003; Q9967; J2704; J3010; J2543; J1100; J1170 ×2; J2710; J7120 ×3; J0694; J2405 ×2; G0378

== ENCOUNTER 2022-04-13 10:29 | Inpatient (IN) | payer OTHER ==
[2022-04-13] MEDS ORDERED: BUTORPHANOL 1 MG/ML INJ IV PRN (10:45)
[2022-04-13] MEDS ORDERED: DIPHENHYDRAMINE 25 MG TAB/CAP PO PRN ×2 (10:45→12:45)
[2022-04-13] MEDS ORDERED: PROMETHAZINE INJ 25 MG/ML AMP IM PRN (10:45)
[2022-04-13] MEDS ORDERED: CARBOPROST TROME 250 MCG/ML IM PRN (10:45)
[2022-04-13] MEDS ORDERED: Ringers Lactate 1,000 ML IV PRN (10:45)
[2022-04-13] MEDS ORDERED: PENICILLIN 5 MU in NA CHLORIDE 0.9% 100 ML IV ONE (10:45)
[2022-04-13] MEDS ORDERED: METHYLERGONOVINE 0.2MG/ML AMP IM PRN (10:45)
[2022-04-13] MEDS ORDERED: MAGNES/ALUMIN/SIMET 30ML UCUP PO PRN (10:45)
--- OUTSIDE RECORDS SUMMARY | 2022-04-13 10:47 | XMS REPORT | Continuity of Care Document ---
:2000 Author Organization [facility] Address [address] [place] [address] Care Team Providers Name Role Phone DELFINA RAMIREZ Primary Care Physician Unavailable ALYSON CAI Attending Clinician Unavailable ALYSON CAI Attending Clinician Unavailable Delfina Ramirez MD Attending Clinician Doctor Unassigned, [place] Attending Clinician Unavailable DELFINA RAMIREZ Attending Clinician Unavailable Ultrasound, Ang-Mfm Attending Clinician Unavailable Justo Warren MD Attending Clinician [phone] JUSTO WARREN Attending Clinician Unavailable Shakeel Claire MD Attending Clinician Stiven Martinez Attending Clinician Shakeel Claire MD Admitting Clinician Payers Payer Name Policy Type Policy Number Effective Date Expiration Date [facility] [id number] 2020 MEDICAID 00:00:00 Problems Condition Condition Condition Status Onset Resolution Last Treating Co mments Source Name Details Category Date Date Treatment Clinician Date High risk High risk Disease Active Uni vers , , 3-09 [place] History of History of Disease Active U nivers depression depression 3-09 it y of 00:00: [place] 00 [facility] Maternal Maternal Disease Active Overview: Un cedric varicella, varicella, 01-25 Formattin ity of non-immune non-immune 00:00: g of this [place] note Medical might be Branch different from the original. Patient will need VZV postpartu m History of History of Disease Active Overview : Univers pre-eclamp pre-eclamp 01-24 Formattin ity of luzmaria luzmaria 00:00: g of this [place] note Medical might be Branch different from the original. 01/24/19 - AST 15, creatinin e 0.56 Anemia of Anemia of Disease Active Overview: Univers mother in mother in 01-24 Formattin i ty of , , 00:00: g of this [place] antepartum antepartum 00 note Me dical might be Branch different from the original. 01/24/19 - Hgb 9.5/hct 30.9 Integra F started. Allergies, Adverse Reactions, Alerts Allergy Allergy Status Severity Reaction(s) Onset Inactive Treating Comm ents Source Name Type Date Date Clinician NO KNOWN Drug Active Univers ALLERGIE Class ity of S [facility] Social History Social Habit Start Date Stop Date Quantity Comments Source ASSERTION 2021-08-05 University 00:00:[address] [facility] Alcohol intake 2022-03-16 2022-03-16 Current [facility] 00:00:00 00:00:00 non-drinker of [facility] alcohol (finding) Branch Exposure to 2022-03-04 2022-03-14 Not sure [facility] SARS-CoV-2 00:00:00 16:37:00 [facility] (event) Branch Tobacco use and 2019-01-24 2019-01-24 Smokeless tobacco Un iversity of exposure 00:00:00 00:00:00 non-user [facility] Sex Assigned At 2000 2000 Universit y of 00:00:00 00:00:[address] [facility] Smoking Status Start Date Stop Date Source Never smoked tobacco [facility] Medications Ordered Filled Start Stop Current Ordering Indication Dosage Frequency Signature Comments Components Source Medication Medication Date Date Medication? Clinician (SIG) Name Name ascorbic 2021- No [id number] 500mg Take 1 Univers acid, 12-10 tablet by ity of vitamin C, 00:00: 04:59 mouth 2 [place] as 500 mg 00 :00 (two) Medical tablet times Branch daily for 150 days. ferrous [id number] 325mg Take 1 U nivers sulfate 12-10 tablet by ity of (IRON, 00:00: 04:59 mouth 2 [place] FERROUS 00 :00 (two) Medical SULFATE,) times Branch 325 mg (65 daily for mg iron) 150 days. tablet ascorbic [id number] 500mg Take 1 Univers acid, 12-10 tablet by ity of vitamin C, 00:00: 04:59 mouth 2 [place] as 500 mg 00 :00 (two) Medical tablet times Branch daily for 150 days. ferrous [id number] 325mg Take 1 U nivers sulfate 12-10 tablet by ity of (IRON, 00:00: 04:59 mouth 2 [place] FERROUS 00 :00 (two) Medical SULFATE,) times Branch 325 mg (65 daily for mg iron) 150 days. tablet ascorbic [id number] 500mg Take 1 Univers acid, 12-10 tablet by ity of vitamin C, 00:00: 04:59 mouth 2 [place] as 500 mg 00 :00 (two) Medical tablet times Branch daily for 150 days. ferrous [id number] 325mg Take 1 U nivers sulfate 12-10 tablet by ity of (IRON, 00:00: 04:59 mouth 2 [place] FERROUS 00 :00 (two) Medical SULFATE,) times Branch 325 mg (65 daily for mg iron) 150 days. tablet ascorbic [id number] 500mg Take 1 Univers acid, 12-10 tablet by ity of vitamin C, 00:00: 04:59 mouth 2 [place] as 500 mg 00 :00 (two) Medical tablet times Branch daily for 150 days. ferrous [id number] 325mg Take 1 U nivers sulfate 12-10 tablet by ity of (IRON, 00:00: 04:59 mouth 2 [place] FERROUS 00 :00 (two) Medical SULFATE,) times Branch 325 mg (65 daily for mg iron) 150 days. tablet ascorbic [id number] 500mg Take 1 Univers acid, 12-10 tablet by ity of vitamin C, 00:00: 04:59 mouth 2 [place] as 500 mg 00 :00 (two) Medical tablet times Branch daily for 150 days. ferrous 2021- No [id number] 325mg Take 1 U nivers sulfate 12-10 tablet by ity of (IRON, 00:00: 04:59 mouth 2 [place] FERROUS 00 :00 (two) Medical SULFATE,) times Branch 325 mg (65 daily for mg iron) 150 days. tablet ascorbic No [id number] 500mg Take 1 Univers acid, 12-10 tablet by ity of vitamin C, 00:00: 04:59 mouth 2 [place] as 500 mg 00 :00 (two) Medical tablet times Branch daily for 150 days. ferrous 2021- No [id number] 325mg Take 1 U nivers sulfate 12-10 tablet by ity of (IRON, 00:00: 04:59 mouth 2 [place] FERROUS 00 :00 (two) Medical SULFATE,) times Branch 325 mg (65 daily for mg iron) 150 days. tablet ascorbic 2021- No [id number] 500mg Take 1 Univers acid, 12-10 tablet by ity of vitamin C, 00:00: 04:59 mouth 2 [place] as 500 mg 00 :00 (two) Medical tablet times Branch daily for 150 days. ferrous 2021- No [id number] 325mg Take 1 U nivers sulfate 12-10 tablet by ity of (IRON, 00:00: 04:59 mouth 2 [place] FERROUS 00 :00 (two) Medical SULFATE,) times Branch 325 mg (65 daily for mg iron) 150 days. tablet ascorbic 2021- No [id number] 500mg Take 1 Univers acid, 12-10 tablet by ity of vitamin C, 00:00: 04:59 mouth 2 [place] as 500 mg 00 :00 (two) Medical tablet times Branch daily for 150 days. ferrous 2021- No [id number] 325mg Take 1 U nivers sulfate 12-10 tablet by ity of (IRON, 00:00: 04:59 mouth 2 [place] FERROUS 00 :00 (two) Medical SULFATE,) times Branch 325 mg (65 daily for mg iron) 150 days. tablet ascorbic 2021- No [id number] 500mg Take 1 Univers acid, 12-10 tablet by ity of vitamin C, 00:00: 04:59 mouth 2 [place] as 500 mg 00 :00 (two) Medical tablet times Branch daily for 150 days. ferrous 2021- No [id number] 325mg Take 1 U nivers sulfate 12-10 tablet by ity of (IRON, 00:00: 04:59 mouth 2 [place] FERROUS 00 :00 (two) Medical SULFATE,) times Branch 325 mg (65 daily for mg iron) 150 days. tablet ascorbic 2021- No [id number] 500mg Take 1 Univers acid, 12-10 tablet by ity of vitamin C, 00:00: 04:59 mouth 2 [place] as 500 mg 00 :00 (two) Medical tablet times Branch daily for 150 days. ferrous 2021- No [id number] 325mg Take 1 U nivers sulfate 12-10 tablet by ity of (IRON, 00:00: 04:59 mouth 2 [place] FERROUS 00 :00 (two) Medical SULFATE,) times Branch 325 mg (65 daily for mg iron) 150 days. tablet ascorbic [id number] 500mg Take 1 Univers acid, 12-10 tablet by ity of vitamin C, 00:00: 04:59 mouth 2 [place] as 500 mg 00 :00 (two) Medical tablet times Branch daily for 150 days. ferrous 2021- No [id number] 325mg Take 1 U nivers sulfate 12-10 tablet by ity of (IRON, 00:00: 04:59 mouth 2 [place] FERROUS 00 :00 (two) Medical SULFATE,) times Branch 325 mg (65 daily for mg iron) 150 days. tablet ascorbic 2021- [id number] 500mg Take 1 Univers acid, 12-10 tablet by ity of vitamin C, 00:00: 04:59 mouth 2 [place] as 500 mg 00 :00 (two) Medical tablet times Branch daily for 150 days. ferrous 2021- No [id number] 325mg Take 1 U nivers sulfate 12-10 tablet by ity of (IRON, 00:00: 04:59 mouth 2 [place] FERROUS 00 :00 (two) Medical SULFATE,) times Branch 325 mg (65 daily for mg iron) 150 days. tablet ascorbic 2021- No [id number] 500mg Take 1 Univers acid, 12-10 tablet by ity of vitamin C, 00:00: 04:59 mouth 2 [place] as 500 mg 00 :00 (two) Medical tablet times Branch daily for 150 days. ferrous 2021- No [id number] 325mg Take 1 U nivers sulfate 12-10 tablet by ity of (IRON, 00:00: 04:59 mouth 2 [place] FERROUS 00 :00 (two) Medical SULFATE,) times Branch 325 mg (65 daily for mg iron) 150 days. tablet fluconazole 2021- No [id number] 200mg Take 1 Univers (DIFLUCAN) 11-15 tablet by ity of 200 mg 00:00: 00:00 mouth [place] tablet 00 :00 daily. Medical Branch PNV Yes [id number] Take 1 Univer s 102-iron-fo 3-09 TAB-CAP/M2 it y of late-dha 00:00: by mouth [place] (VITAFOL FE 00 daily. Medica l PLUS) 90 mg Branch iron- 1 mg-200 mg Cap PNV Yes [id number] Take 1 Univer s 102-iron-fo 3-09 TAB-CAP/M2 it y of late-dha 00:00: by mouth [place] (VITAFOL FE 00 daily. Medica l PLUS) 90 mg Branch iron- 1 mg-200 mg Cap PNV Yes [id number] Take 1 Univer s 102-iron-fo 3-09 TAB-CAP/M2 it y of late-dha 00:00: by mouth [place] (VITAFOL FE 00 daily. Medica l PLUS) 90 mg Branch iron- 1 mg-200 mg Cap PNV Yes [id number] Take 1 Univer s 102-iron-fo 3-09 TAB-CAP/M2 it y of late-dha 00:00: by mouth [place] (VITAFOL FE 00 daily. Medica l PLUS) 90 mg Branch iron- 1 mg-200 mg Cap PNV Yes [id number] Take 1 Univer s 102-iron-fo 3-09 TAB-CAP/M2 it y of late-dha 00:00: by mouth [place] (VITAFOL FE 00 daily. Medica l PLUS) 90 mg Branch iron- 1 mg-200 mg Cap PNV 2022-0 Yes [id number] Take 1 Univer s 102-iron-fo 3-09 TAB-CAP/M2 it y of late-dha 00:00: by mouth [place] (VITAFOL FE 00 daily. Medica l PLUS) 90 mg Branch iron- 1 mg-200 mg Cap PNV 2022-0 Yes [id number] Take 1 Univer s 102-iron-fo 3-09 TAB-CAP/M2 it y of late-dha 00:00: by mouth [place] (VITAFOL FE 00 daily. Medica l PLUS) 90 mg Branch iron- 1 mg-200 mg Cap PNV 2022-0 Yes [id number] Take 1 Univer s 102-iron-fo 3-09 TAB-CAP/M2 it y of late-dha 00:00: by mouth [place] (VITAFOL FE 00 daily. Medica l PLUS) 90 mg Branch iron- 1 mg-200 mg Cap PNV 2022-0 Yes [id number] Take 1 Univer s 102-iron-fo 3-09 TAB-CAP/M2 it y of late-dha 00:00: by mouth [place] (VITAFOL FE 00 daily. Medica l PLUS) 90 mg Branch iron- 1 mg-200 mg Cap PNV 2022-0 Yes [id number] Take 1 Univer s 102-iron-fo 3-09 TAB-CAP/M2 it y of late-dha 00:00: by mouth [place] (VITAFOL FE 00 daily. Medica l PLUS) 90 mg Branch iron- 1 mg-200 mg Cap PNV 2022-0 Yes [id number] Take 1 Univer s 102-iron-fo 3-09 TAB-CAP/M2 it y of late-dha 00:00: by mouth [place] (VITAFOL FE 00 daily. Medica l PLUS) 90 mg Branch iron- 1 mg-200 mg Cap PNV 2022-0 Yes [id number] Take 1 Univer s 102-iron-fo 3-09 TAB-CAP/M2 it y of late-dha 00:00: by mouth [place] (VITAFOL FE 00 daily. Medica l PLUS) 90 mg Branch iron- 1 mg-200 mg Cap PNV 2021-0 Yes [id number] Take 1 Univer s 102-iron-fo 3-09 TAB-CAP/M2 it y of late- 00:00: by mouth [place] (VITAFOL FE 00 daily. Medica l PLUS) 90 mg Branch iron- 1 mg-200 mg Cap Immunizations Ordered Filled Immunization Date Status Comments Sourc e Immunization Name Name [facility] 2020-05-10 Completed University of 00:00:[address] [facility] TDAP 2020-05-10 Completed University of 00:00:[address] [facility] TDAP 2020-05-10 Completed University of 00:00:[address] [facility] TDAP 2020-05-10 Completed University of 00:00:[address] [facility] TDAP 2020-05-10 Completed University of 00:00:[address] [facility] TDAP 2020-05-10 Completed University of 00:00:[address] [facility] TDAP 2020-05-10 Completed University of 00:00:[address] [facility] TDAP 2020-05-10 Completed University of 00:00:[address] [facility] TDAP 2020-05-10 Completed University of 00:00:[address] [facility] TDAP 2020-05-10 Completed University of 00:00:[address] [facility] TDAP 2020-05-10 Completed University of 00:00:[address] [facility] TDAP 2020-05-10 Completed University of 00:00:[address] [facility] TDAP 2020-05-10 Completed University of 00:00:[address] [facility] Vital Signs Vital Name Observation Time Observation Value Comments Source Systolic blood 2022-03-14 21:45:00 114 mm[Hg] Univer sity of pressure [facility] Diastolic blood 2022-03-14 21:45:00 76 mm[Hg] Unive rsity of pressure [facility] Heart rate 2022-03-14 21:45:00 85 /min [facility] Body temperature 2022-03-14 21:45:00 36.72 Joyce [facility] [place] Respiratory rate 2022-03-14 21:45:00 18 /min [facility] [place] Body height 2022-03-14 21:45:00 154.9 cm [facility] Body weight 2022-03-14 21:45:00 57.879 kg Universi ty [facility] [place] [facility] BMI 2022-03-14 21:45:00 24.11 kg/m2 [facility]i ty [facility] [place] [facility] Systolic blood 2022-02-21 21:20:00 100 mm[Hg] Univer sity of pressure [place] [facility] Diastolic blood 2022-02-21 21:20:00 55 mm[Hg] Unive rsity of pressure [place] [facility] Heart rate 2022-02-21 21:20:00 93 /min [facility]i ty [facility] [place] [facility] Body temperature 2022-02-21 21:20:00 36.67 Joyce Univ ersity of [place] [facility] Respiratory rate 2022-02-21 21:20:00 18 /min Univ ersity of [place] [facility] Body height 2022-02-21 21:20:00 154.9 cm [facility]i ty [facility] [place] [facility] Body weight 2022-02-21 21:20:00 57.652 kg [facility]i ty [facility] [place] [facility] BMI 2022-02-21 21:20:00 24.02 kg/m2 [facility]i [facility] [place] [facility] Systolic blood 2022-02-07 20:45:00 105 mm[Hg] Univer sity of pressure [place] [facility] Diastolic blood 2022-02-07 20:45:00 68 mm[Hg] Unive rsity of pressure [place] [facility] Heart rate 2022-02-07 20:45:00 59 /min [facility]i ty [facility] [place] [facility] Body temperature 2022-02-07 20:45:00 36.72 Joyce Univ ersity [facility] [place] [facility] Body height 2022-02-07 20:45:00 154.9 cm Universi ty [facility] [place] [facility] Body weight 2022-02-07 20:45:00 56.7 kg [facility]i ty [facility] [place] [facility] BMI 2022-02-07 20:45:00 23.62 kg/m2 [facility]i ty [facility] [place] [facility] Systolic blood 2022-01-10 16:12:00 110 mm[Hg] Univer sity of pressure [place] [facility] Diastolic blood 2022-01-10 16:12:00 69 mm[Hg] Unive rsity of pressure [place] [facility] Heart rate 2022-01-10 16:12:00 82 /min Universi ty [facility] [place] [facility] Body temperature 2022-01-10 16:12:00 36.89 Joyce Univ ersity [facility] [place] [facility] Body height 2022-01-10 16:12:00 154.9 cm Universi ty [facility] Body weight 2022-01-10 16:12:00 57.108 kg Universi ty [facility] BMI 2022-01-10 16:12:00 23.79 kg/m2 Universi ty [facility] Systolic blood 2021-12-10 16:50:00 109 mm[Hg] Univer sity of pressure [facility] Diastolic blood 2021-12-10 16:50:00 74 mm[Hg] Unive rsity of [facility] Heart rate 2021-12-10 16:50:00 96 /min [facility] Body temperature 2021-12-10 16:50:00 37 Joyce [facility] [place] Respiratory rate 2021-12-10 16:50:00 18 /min [facility] [place] Body height 2021-12-10 16:50:00 154.9 cm [facility] Body weight 2021-12-10 16:50:00 55.656 kg [facility] BMI 2021-12-10 16:50:00 23.18 kg/m2 [facility] Procedures Procedure Date / Time Performing Clinician Source Performed DME/SUPPLY JUSTIFICATION 2022-03-21 05:01:00 Doctor Unassigned, No [facility] POCT URINALYSIS W/O 2022-03-14 00:00:00 Alyson Cai [facility] DME/SUPPLY JUSTIFICATION 2022-03-04 05:01:00 Doctor Unassigned, No [facility] POCT URINALYSIS W/O 2022-02-21 21:35:00 Alyson Cai [facility] URINE CULTURE 2022-02-07 20:51:00 Alyson Cai [facility] DSU PRE-OP 2022-02-07 05:01:00 [facility]/O 2022-02-07 00:00:00 Alyson Cai [facility] POCT URINALYSIS W/O 2022-01-10 00:00:00 Delfina Ramirez [facility] SPECIFIC GRAVITY [facility] POCT URINALYSIS W/O 2021-12-10 18:15:00 Alyson Cai [facility] Encounters Start End Encounter Admission Attending Care Care Encounter Source Date/Time Date/Time Type Type Clinicians Facility Department ID 2022-04-16 2022-04-16 Outpatient R ALYSON CAI [facility] UTM B [id number] Univers 16:30:00 16:30:00 ALYSON CAI 22 0810 [facility] [place] 2022-04-14 2022-04-14 Outpatient R ALYSON CAI [facility] UTM B [id number] Univers 13:00:00 13:00:00 ALYSON CAI 22 0808 [facility] [place] 2022-04-14 2022-04-14 Outpatient R ALYSON CAI [facility] UTM B [id number] Univers 13:00:00 13:00:00 ALYSON CAI [facility] [place] 2022-04-11 2022-04-11 Outpatient R ALYSON CAI [facility] UTM B [id number] Univers 16:00:00 16:00:00 ALYSON CAI [facility] [place] 2022-04-11 2022-04-11 Outpatient R ALYSON CAI [facility] UTM B [id number] Univers 11:15:00 11:15:00 ALYSON CAI 22 0805 [facility] [place] 2022-03-21 2022-03-21 Outpatient R ALYSON CAI [facility] UTM B [id number] Univers 13:15:00 13:15:00 ALYSON CAI 22 0715 [facility] [place] 2022-03-21 2022-03-21 Outpatient R ALYSON CAI [facility] UTM B [id number] Univers 13:15:00 13:15:00 ALYSON CAI [facility] [place] 2022-03-21 2022-03-21 Telephone Delfina Ramirez [facility] 1.2.840.114 [id number] Univers 00:00:00 00:00:00 Karthik READ 350.1.13.10 i ty [place] [id number] Dc dical [address] 2022-03-21 2022-03-21 Orders Doctor RONNI 1.2.840.114 [id number] Univers 00:00:00 00:00:00 Only Unassigned, [place] 350.1.13.10 ity of [place] [facility] 4.2.7.2.686 [place] as [id number] [address] 2022-03-14 2022-03-14 Outpatient R ALYSON CAI [facility] B [id number] Univers 16:30:00 16:59:07 ALYSON CAI [facility] [place] 2022-03-14 2022-03-14 [facility] 1.2.840.114 [id number] Univers 16:30:00 16:59:07 Alyson PEREZ 350.1.13.10 i ty of Visit [place] [id number] [address] 2022-03-14 2022-03-14 Outpatient R ALYSON CAI [facility] B [id number] Univers 16:30:00 16:30:00 [facility]ON CAI [facility] 2022-03-14 2022-03-14 Telephone Delfina Ramirez [facility] 1.2.840.114 [id number] Univers 00:00:00 00:00:00 Karthik PEREZ 350.1.13.10 it y of [place] [id number] [address] 2022-03-07 2022-03-07 Outpatient R ALYSON CAI [facility] B [id number] Univers 16:00:00 16:00:00 ALYSON CAI 22 0701 ity [facility] 2022-03-07 2022-03-07 Outpatient R VIOLETALYSON TOLENTINO [facility] B [id number] Univers 16:00:00 16:00:00 VIOLETALYSON TOLENTINO xander [facility] 2022-03-05 2022-03-05 Telephone Delfina Ramirez [facility] 1.2.840.114 [id number] Univers 00:00:00 00:00:00 Cam R[place] 350.1.13.10 i ty [place] [id number] Dc dical [address] 2022-03-04 2022-03-04 Orders Doctor RONNI 1.2.840.114 [id number] Univers 00:00:00 00:00:00 Only Unassigned, [place] 350.1.13.10 ity of [place] [facility] 4.2.7.2.686 [place] as [id number] [address] 2022-02-21 2022-02-21 Outpatient R TRELL ALYSON [facility] B [id number] Univers 16:15:00 16:29:40 TRELLALYSON [facility] [place] 2022-02-21 2022-02-21 [facility] 1.2.840.114 [id number] Univers 16:15:00 16:29:40 Isabellayong PEREZ 350.1.13.10 i ty of Visit [place] 4[place] [id number] [address] 2022-02-21 2022-02-21 Outpatient R TRELL ALYSON [facility] B [id number] Univers 16:15:00 16:15:00 ALYSON CAI 22 0617 [facility] [place] 2022-02-07 2022-02-07 Outpatient R ALYSON CAI [facility] B [id number] Univers 16:30:00 16:30:00 ALYSON CAI 22 0603 [facility] [place] 2022-02-07 2022-02-07 [facility] 1.2.840.114 [id number] Univers 16:30:00 16:30:00 Alyson PEREZ 350.1.13.10 i ty of [place] [id number] [address] 2022-02-07 2022-02-07 Outpatient R ALYSON CAI [facility] B [id number] Univers 16:30:00 16:12:37 TRELL ALYSON [facility] [place] 2022-02-07 2022-02-07 Outpatient R LORNEALYSON [facility] B [id number] Univers 11:00:00 11:00:00 [facility] [place] 2022-02-07 2022-02-07 Orders Doctor RONNI 1.2.840.114 [id number] Univers 00:00:00 00:00:00 Only Unassigned, [place] 350.1.13.10 ity of [place] [facility] 4.2.7.2.686 [place] as [id number] [place] [address] Branch 2022-02-04 2022-02-04 Telephone [facility] 1.2.840.11 [id number] Univers 00:00:00 00:00:00 Alyson PEREZ 350.1.13.10 it [place] [id number] [address] 2022-01-10 2022-01-10 Outpatient R DELFINA RAMIREZ [facility] [id number] Univers 10:45:00 11:23:[address] [facility] 2022-01-10 2022-01-10 Routine Delfina Ramirez [facility] 1.2.840.114 [id number] Univers 10:45:00 11:23:09 Karthik PEREZ 350.1.13.10 i ty of Visit [place] [id number] [address] 2022-01-08 2022-01-08 Newspaper Copy Editor Ultrasound, [facility] 1.2 .840.114 [id number] Univers 15:15:00 16:00:00 Visit Sarah Justo Garcia ACADEMIC ADVISOR 350.1. 13.10 ity of REGIONAL 4.2.7.2.686 [place] as MATERNAL [id number] Med ical & CHILD [address] [place] [address] 2022-01-08 2022-01-08 Outpatient P [facility] [id number] Univers 15:15:00 15:15:00 [id number] ity [facility] 2022-01-08 2022-01-08 Outpatient P SARAH [facility] [id number] Univers 15:15:00 15:15:00 LUDIN it y of S, KEMP [facility] 2021-12-10 2021-12-10 Routine [facility] 1.2.840.114 [id number] Univers 11:30:00 12:17:27 Alyson PEREZ 350.1.13.10 i ty of Visit WOMEN'S 4.2.7.2.686 [facility] Azlekelly cheema [facility] [id number] [address] 2021-12-10 2021-12-10 Outpatient R ALYSON CAI [facility] B [id number] Univers 11:30:00 12:17:27 ALYSON CAI [facility] [place] 2020-07-13 2020-07-13 [facility] RONNI Claire [id number] [id number] 10:57:00 13:28:00 Encounter Shakeel HENDERSON 350.1.13.10 [place] 4.2.7.2.686 [id number] 2020-07-02 2020-07-02 [facility] 1.2.840.114 [id number] 14:34:51 15:21:54 Roshunda R ACADEMIC ADVISOR [id number] Visit REGIONAL [id number] MATERNAL [id number] & [address] Results Test Description Test Time Test Comments Results Result Comments Source POCT URINALYSIS W/O SPECIFIC GRAVITY 2022-03-16 17:17:00 Test Item Value Reference Range Interpretation Comme nts POCT PH U (test code = 3254) N/A 5-8 POCT U LEUK EST (test code = 3263) N/A Negative - Negative POCT U NIT (test code = 3262) N/A Negative - Negative POCT U PROT (test code = 3259) NEGATIVE Negative - Negative POCT U GLU (test code = 3256) NEGATIVE Negative - Negative POCT U KETONE (test code = 3258) N/A Negative - Negative POCT U BLD (test code = 3257) N/A Negative - Negative [facility] URINALYSIS W/O SPECIFIC [id number] 21:36:00 Test Item Value Reference Range Interpretation Comments POCT PH U (test code = 3254) n/a 5-8 POCT U LEUK EST (test code = n/a Negative - Negative 3263) POCT U NIT (test code = 3262) n/a Negative - Negative POCT U PROT (test code = 3259) Negative Negative - Negative POCT U GLU (test code = 3256) Negative Negative - Negative POCT U KETONE (test code = 3258) n/a Negative - Negative POCT U BLD (test code = 3257) n/a Negative - Negative [facility] URINALYSIS W/O SPECIFIC [id number] 20:48:00 Test Item Value Reference Range Interpretation Comments POCT PH U (test code = 3254) n/a 5-8 POCT U LEUK EST (test code = n/a Negative - Negative 3263) POCT U NIT (test code = 3262) n/a Negative - Negative POCT U PROT (test code = 3259) Negative Negative - Negative POCT U GLU (test code = 3256) Normal Negative - Negative POCT U KETONE (test code = 3258) n/a Negative - Negative POCT U BLD (test code = 3257) n/a Negative - [facility] [id number] 16:14:00 Test Item Value Reference Range Interpretation Comments POCT PH U (test code = 3254) n/a 5-8 POCT U LEUK EST (test code = n/a Negative - Negative 3263) POCT U NIT (test code = 3262) n/a Negative - Negative POCT U PROT (test code = 3259) Negative Negative - Negative POCT U GLU (test code = 3256) normal Negative - Negative POCT U KETONE (test code = 3258) n/a Negative - Negative POCT U BLD (test code = 3257) n/a Negative - [facility] [id number] 18:15:00 Test Item Value Reference Range Interpretation Comments POCT PH U (test code = 3254) n/a 5-8 POCT U LEUK EST (test code = n/a Negative - Negative 3263) POCT U NIT (test code = 3262) n/a Negative - Negative POCT U PROT (test code = 3259) Negative Negative - Negative POCT U GLU (test code = 3256) Negative Negative - Negative POCT U KETONE (test code = 3258) n/a Negative - Negative POCT U BLD (test code = 3257) n/a Negative - Negative [facility]
[2022-04-13] MEDS ORDERED: OXYTOCIN/LR 20 UNIT/1,000 ML BAG IV SCH ×2 (11:00→13:00)
[2022-04-13] MEDS ORDERED: Ringers Lactate 1,000 ML IV SCH (11:00)
[2022-04-13] MEDS ORDERED: OXYTOCIN 10 UNIT/ML ML ONE (11:11)
[2022-04-13 11:38] LABS: Absolute Lymphocytes (CBC) 2.6 K/uL (0.7-4.9); Hematocrit 28.1 % (36.0-45.0); Lymphocytes % 32.9 % (15.3-44.8); MCV 65.5 fL (80-100); MPV 10.3 fL (7.6-11.3); RBC Red Blood Cell Count 4.28 M/uL (3.86-4.86)
[2022-04-13 11:38] LABS: Specific Gravity 1.025 (1.005-1.030); Urine Bilirubin Negative (Negative); Urine Blood Negative (Negative); Urine Clarity Clear (Clear); Urine Color Yellow (Yellow); Urine Glucose Negative (Negative); Urine Protein Trace (Negative)
[2022-04-13 11:43] VITALS: BMI 23.6
[2022-04-13 11:49] LABS: Urine Bacteria <20 /HPF (<20); Urine Mucus 2+ /HPF (None Seen); Urine RBC <5 /HPF (None Seen)
[2022-04-13] MEDS ORDERED: LIDOCAINE 1% 20 ML MDV ONE (12:11)
[2022-04-13] MEDS ORDERED: BISACODYL 10 MG RECTAL SUPP PR PRN (12:45)
[2022-04-13] MEDS ORDERED: ACETAMINOPHEN 500 MG TAB PO PRN (12:45)
[2022-04-13] MEDS ORDERED: DOCUSATE NA/SENNA CONC 1 TAB PO PRN (12:45)
[2022-04-13] MEDS ORDERED: IBUPROFEN 200 MG TAB PO PRN (12:45)
[2022-04-13] MEDS ORDERED: Oxycodone HCl/Acetaminophen 1 TAB TAB PO PRN (12:45)
[2022-04-13 12:57] LABS: Anisocytosis 1+; Blood Morphology Comment NOTED (NOT SEEN); Hypochromasia 1+; Platelet Estimate ADEQ; Poikilocytosis 1+; Target Cells FEW; White Blood Cell Scan OK (OK)
[2022-04-13 12:58] LABS: Ovalocytes 1+; Teardrop Cell FEW
[2022-04-13 15:21] LABS: Barbiturates NEGATIVE (NEGATIVE); Benzodiazepines NEGATIVE (NEGATIVE); Cocaine NEGATIVE (NEGATIVE); METHAMPHETAM NEGATIVE (NEGATIVE); Methadone NEGATIVE (NEGATIVE); Opiates NEGATIVE (NEGATIVE); Phencyclidine NEGATIVE (NEGATIVE); THC Cannibis POSITIVE (NEGATIVE)
[2022-04-13] MEDS: Oxycodone HCl/Acetaminophen 1 TAB TAB PO PRN (15:37)
--- NOTE | 2022-04-13 17:03 | PREOPHP ---
Date of Admission: 04/13/2022 History Of Present Illness: Priscila De Paz is a 21-year-old, 4, para 3, 37 weeks 6 days, fo llowed antepartum by Dr. Hinton at [facility]. Came in to our institution for check. She did not thin k she could make at [place], certainly not to [place], 5 cm on admission. She is now progresse d to 9, bulging membranes, rupture of membranes, basically term type fluid. Baby looks good on the m onitor. Vital signs are all stable. Strep test was negative. Other labs are pending. Family History: Noncontributory. Allergies: NO ALLERGIES NOTED. Past Surgical History: No previous surgeries of any significance relating to . Physical Examination: HEENT: Clear. Pupils equal, round, reactive to light and accommodation. Conjunctivae well perfused . No oral, lingual, or buccal lesions. Chest and Lungs: Clear. Heart: Without murmurs, thrills, heaves, rubs. Breasts: Not examined. Abdomen: Appropriate size. Extremities: Clear. Assessment And Plan: Anticipate delivery relatively soon. ROXANE/CARLOS Voice ID: [id number]
[2022-04-14] MEDS: Oxycodone HCl/Acetaminophen 1 TAB TAB PO PRN ×2 (01:09→05:27)
[2022-04-14 02:13] LABS: RPR (Rapid Plasma Reagin) NON-REACT (NON-REACT)
--- NOTE | 2022-04-14 07:18 | DS ---
Hospital Course: This is a 21-year-old, 4, para 3, 37 weeks 6 days, delivered of a 7-pound 1 0-ounce male , Apgars 9 and 9. No episiotomy. No laceration. Schultze delivery of the placen ta, inspected and noted to be intact and normal. Less than 300 cc blood loss. Rh positive, immune t o rubella, negative strep, negative COVID. afebrile, ambulating, voiding. Milagros is norm al. She will be dismissed later today to report back to her clinic, which she has apparently already done. Our plan is to make an appointment to see them somewhere between 4 and 6 weeks from this poin t to report any temperature elevation of 100 degrees or greater, severe pain, heavy bleeding, or any other type abnormalities. Tdap immunization suggested. No problems reported. No questions. Final Diagnoses: Term intrauterine at 37 weeks 6 days, followed by [facility], vaginal delivery, now dismissed. ROXANE/CARLOS Voice ID: [id number] Report ID: [id number]
--- NOTE | 2022-04-14 11:33 | OP ---
Surgeon: Buddy Otto MD 21-year-old 4, para 3, 37 weeks 6 days, followed [facility] Dr. Morgan without apparent co mplications, went into active labor, she states she came to our institution. She did not think she can make it to [place], 5 cm on admission, rosas every 2 minutes. The patient is Rh positive, rubella immune. Other labs are pending at this point. She went rapidly to complete secon d stage of about 30 minutes as the patient would not really push very effectively. Finally, she push ed effectively and was delivered of a 7-pound 10-ounce male infant, Apgars 9 and 9. No episiotomy. No lacerations worthy of suturing. Schultze delivery of the placenta was inspected and noted to be i ntact and normal 300 cc or less blood loss. Tolerated all procedures well. She was given [address] adol IV after delivery of the baby, clamping the cord at her request, resting comfortably at this poi nt. Final Diagnoses: Term intrauterine at 37 weeks 6 days, spontaneous labor, vaginal delivery . Other laboratories pending at this point, [facility] the patient. ROXANE/CARLOS Voice ID: [id number] Report ID: [id number]
[2022-04-14 13:28] VITALS: BP 108/66; TEMP 97.7
[2022-04-14] MEDS ORDERED: IBUPROFEN 600 MG TAB PO PRN (14:11)
[2022-04-16 04:22] LABS: HBsAG Nonreactive (Nonreactive)
== END 2022-04-14 16:00 | disposition home or self-care (01) | DRG 807 ==
LOC: L&D 10:29 → 2ND-WC 10:43
PROVIDERS: ADMIT Specialist; ATTEND Specialist
PROC: 10E0XZZ Delivery of Products of Conception, External Approach (ICD-10-PCS; principal; 2022-04-13)
PROC: 10907ZC Drainage of Amniotic Fluid, Therapeutic from Products of Conception, Via Natural or Artificial Opening (ICD-10-PCS; 2022-04-13)
DX: O80 Encounter for full-term uncomplicated delivery (principal); Z37.0 Single live birth; Z3A.37 37 weeks gestation of pregnancy; Z20.822 Contact with and (suspected) exposure to COVID-19
CPT/HCPCS: 36415; 80307; 81001; 82947; 85025; 86592; 86762; 86901; 87086; 87088; 87340; G0433; J0595; J2210; J2540; J2590; J7120; U0003